=== PATIENT | male | born 1965 | race Two or more races ===

== ENCOUNTER 2023-01-23 10:35 | Emergency (ER) | payer MEDICAID ==
[~2023-01-23] VITALS: Ht 167.6 cm; Wt 141.2 kg
[2023-01-23 11:19] LABS: Basophils # (auto) 0.1 10 ^3/uL (0-0.2); Basophils % (auto) 0.6 % (0.0-2.0); Eosinophils # (auto) 0.1 10 ^3/uL (0-0.8); Lymphocytes # (auto) 3.1 10 ^3/uL (0.4-5.4); Neutrophils # (auto) 6.7 10 ^3/uL (1.6-8.6); Neutrophils % (auto) 62.3 % (37.0-80.0); Nucleated Red Blood Cells % 0.1 %
[2023-01-23 11:21] LABS: Eosinophils % (auto) 0.9 % (0.0-7.0); Hematocrit 57.2 % (41.0-53.0); Hemoglobin 19.3 g/dL (13.5-17.5); Lymphocytes % (auto) 29.3 % (10.0-50.0); Mean Corpuscular Hgb Conc. 33.8 g/dL (32.0-36.0); Mean Corpuscular Volume 94.6 fL (80.0-100.0); Monocytes # (auto) 0.7 10 ^3/uL (0-1.3); Monocytes % (auto) 6.9 % (0.0-12.0); Red Blood Cells 6.04 10^6/uL (4.5-5.90); White Blood Cell 10.7 10^3/uL (4.4-10.8)
[2023-01-23 11:36] LABS: Urine Bacteria NONE SEEN /hpf (None Seen); Urine Blood Negative /uL (Negative); Urine Clarity Clear (Clear); Urine Color Yellow (Yellow); Urine Hyaline Cast FEW /lpf (0 - 2); Urine Mucus FEW (None Seen); Urine Protein, UAD 1+ (Negative); Urine Specific Gravity 1.024 (1.001-1.035); Urine WBC 7 /hpf (0 - 3); Urine pH 5.5 (5.0-8.0)
[2023-01-23 12:09] LABS: Alanine Aminotransferase 31 U/L (16-61); Aspartate Aminotransferase 17 U/L (15-37); GFR African American 101 mL/min; GFR Non-African American 84 mL/min; Magnesium 2.2 mg/dL (1.6-2.6); Total Protein 7.1 g/dL (6.4-8.2)
[2023-01-23 12:17] LABS: Potassium 4.5 mmol/L (3.5-5.1); Sodium 140 mmol/L (136-145)
[2023-01-23 12:18] LABS: Albumin 3.9 g/dL (3.4-5.0); Alkaline Phosphatase 85 U/L (45-117); Anion Gap 9 (5-15); BUN/Creatinine Ratio 13.3 (10.0-20.0); Bilirubin, Total 0.6 mg/dL (0.2-1.0); Blood Urea Nitrogen 13 mg/dL (7-18); Calcium 10.5 mg/dL (8.5-10.1); Carbon Dioxide 21 mmol/L (21-32); Chloride 110 mmol/L (98-107); Glucose 110 mg/dL (74-106)
[2023-01-23 12:19] LABS: Amylase 36 U/L (25-115); Lipase 203 U/L (73-393)
[2023-01-23] MEDS ORDERED: ZOFR4T PO (12:39)
[2023-01-23] MEDS ORDERED: TRAM50TA2 PO (12:39)
[2023-01-23] MEDS ORDERED: CIPR-173 PO (12:41)
[2023-01-23 12:47] VITALS: BP 145/91; PULSE 95; RESP 18; TEMP 97.5; O2SAT 97
== END 2023-01-23 12:51 | disposition home or self-care (01) ==
LOC: ER 10:35
DX: N20.0 Calculus of kidney (principal); N39.0 Urinary tract infection, site not specified; F17.210 Nicotine dependence, cigarettes, uncomplicated; Z79.899 Other long term (current) drug therapy
CPT/HCPCS: 36415; 74176; 80053; 81001; 82150; 83690; 83735; 84484; 85025; 93005

== ENCOUNTER 2024-08-09 08:18 | Inpatient (IN) | payer MEDICAID ==
[~2024-08-09] VITALS: Ht 188 cm; Wt 139.0 kg
[~2024-08-09 08:18] MED LIST: CIPR-173 PO; TRAM50TA2 PO; ZOFR4T PO
--- NOTE | 2024-08-09 09:30 | ED.PDOC ---
Musculoskeletal HPI Comments 59 year old male presents to the ED with chief complaint of bilateral foot pain. Patient reports that he has been experiencing bilateral foot numbness, pain, and discoloration for the past month, worsening over time. Patient relays that his pain worsened so much last night that he needed to come into the ED for further evaluation. Patient states he got a PCP last week and has not seen a doctor in years. Patient denies any weakness, calf pain, thigh pain, chest pain, SOB, or headache. Chief Complaint: Lower Extremity Time Seen by MD: 09:26 Primary Care Provider: NONE Reviewed Notes: Nurses Notes, Medications, Allergies Allergies: Uncoded Allergies: NARCOTICS (Allergy, Unknown, 01/23/23) Home Meds Active Scripts Ciprofloxacin Hcl (Cipro) 500 Mg Tab, 1 TAB PO BID, #14 TAB Prov:EREN WEBB MD 01/23/23 Tramadol Hcl (Tramadol Hcl) 50 Mg Tab, 50 MG PO Q8HP PRN for 7 Days, #21 TAB Prov:EREN WEBB MD 01/23/23 Ondansetron Odt 4MG Tab (ZOFRAN PO) 4 Mg Tb, 4 MG PO Q8HPRN PRN for 5 Days, #15 TAB ODT TAB-DISSOLVE IN MOUTH, THEN SWALLOW Prov:EREN WEBB MD 01/23/23 Information Source: Patient Mode of Arrival: Wheelchair Location: Bilateral Extremity Location: Foot Timing: Months Prehospital treatment: None Severity: Moderate Able to Move Extremity: Yes Bear Weight: Limited Pain: Moderate Mechanism: Spontaneous Circumstances: Spontaneous Onset of Symptoms: Spontaneous Symptoms: Pain, Erythema DVT Risk Factors: NONE Last Tetanus: Unknown Past Medical History PAST MEDICAL HISTORY: Kidney Stones Surgical History: Hernia Repair Family History Family History: Reviewed,noncontributory to illness, Family hx of Cancer Social History Smoker: Cigarettes Alcohol: Sober Drugs: Denies Drug Use Lives In: Home Constitutional: denies: chills, diaphoresis, fatigue, fever, malaise, sweats, weakness, others EENTM: denies: blurred vision, double vision, ear bleeding, ear discharge, ear drainage, ear pain, ear ringing, eye pain, eye redness, hearing loss, mouth pain, mouth swelling, nasal discharge, nose bleeding, nose congestion, nose pain, photophobia, tearing, throat pain, throat swelling, voice changes, others Respiratory: denies: cough, hemoptysis, orthopnea, SOB at rest, shortness of breath, SOB with excertion, stridor, wheezing, others Cardiovascular: denies: chest pain, dizzy spells, diaphoresis, Dyspnea on exertion, edema, irregular heart beat, left arm pain, lightheadedness, palpitations, PND, syncope, others Gastrointestinal: denies: abdomen distended, abdominal pain, blood streaked bowels, constipated, diarrhea, dysphagia, difficulty swallowing, hematemesis, melena, nausea, poor appetite, poor fluid intake, rectal bleeding, rectal pain, vomiting, others Genitourinary: denies: burning, dysuria, flank pain, frequency, hematuria, incontinence, penile discharge, penile sore, pain, testicle pain, testicle swelling, urgency, others Neurological: reports: numbness; denies: dizziness, fainting, headache, left sided numbness, left sided weakness, paresthesia, pre-existing deficit, right sided numbness, right sided weakness, seizure, speech problems, tingling, tremors, weakness, others Musculoskeletal: reports: others (Bilateral foot pain); denies: back pain, gout, joint pain, joint swelling, muscle pain, muscle stiffness, neck pain Integumetry: denies: bruises, change in color, change in hair/nails, dryness, laceration, lesions, lumps, rash, wounds, others Allergic/Immunocompromised: denies: Difficulty Healing, Frequent Infections, Hives, Itching, others Hematologic/Lymphatic: denies: anemia, blood clots, easy bleeding, easy bruising, swollen glands, others Endocrine: denies: excessive hunger, excessive sweating, excessive thirst, excessive urination, flushing, intolerance to cold, intolerance to heat, unexplained weight gain, unexplained weight loss, others Psychiatric: denies: anxiety, bipolar disorder, depression, hopeless, panic disorder, schizophrenia, sleepless, suicidal, others All Other Systems: Reviewed and Negative Physical Exam General Appearance: No Apparent Distress, Normal HEENT: Normal ENT Inspection, PERRL/EOMI Neck: Full Range of Motion, Non-Tender, Normal, Normal Inspection Respiratory: Chest Non-Tender, Lungs Clear, No Accessory Muscle Use, No Respiratory Distress, Normal Breath Sounds Cardiovascular: No Edema, No JVD, No Murmur, No Gallop, Normal Peripheral Pulses, Regular Rate/Rhythm Breast Exam: Deferred Gastrointestinal: No Organomegaly, Non Tender, No Pulsatile Mass, Normal Bowel Sounds, Soft Genitalia: Deferred Pelvic: Deferred Rectal: Deferred Extremities: No calf tenderness, Normal range of motion, No pedal edema, Other (Erythema and Moddling noted to the bilateral lower extremities) Musculoskeletal : Apperance: Normal Neurologic: Alert, press tender short goods II-XII nml as Tested, No Motor Deficits, Normal Affect, Normal Mood, No Sensory Deficits Cerebellar Function: Normal Reflexes: Normal Skin: Dry, Normal Color, Warm Lymphatic: No Adenopathy Was a procedure done? Was a procedure done?: No Differential Diagnosis EXT Differential Diagnosis: Sprain, Gout, Myocardial Infarction, Contusion, Strain, Neurovascular injury, Arthritis X-Ray, Labs, Meds, VS Vital Signs Date Time Temp Pulse Resp B/P (MAP) Pulse Ox O2 Delivery O2 Flow Rate FiO2 08/09/24 12:00 83 08/09/24 11:41 91 16 131/80 (97) 95 08/09/24 10:31 95 08/09/24 10:24 98.2 102 16 148/70 (96) 95 98.2 08/09/24 10:24 102 16 95 Room Air 08/09/24 08:29 97.7 112 18 162/86 (111) 95 Lab Test 08/09/24 12:05 08/09/24 10:21 08/09/24 10:05 08/09/24 09:41 Range/Units Troponin I High Sensitivity Pending 460 *H </=54 ng/L POC Glucose 123 H 70-106 mg/dl Urine Color Light-yellow Yellow Urine Clarity Clear Clear Urine pH 6.5 5.0-9.0 Urine Specific [place] 1.013 1.001-1.035 Urine Protein 1+ H Negative Urine Ketones Negative Negative Urine Blood Trace H Negative /uL Urine Nitrite Negative Negative Urine Bilirubin Negative Negative Urine Urobilinogen Normal Negative mg/dL Urine Leukocyte Esterase Negative Negative /uL Urine RBC 8 0 - 3 /hpf Urine Microscopic WBC 5 H 0-3 /HPF Urine Squamous Epithelial Cells Few <5 /hpf Urine Bacteria None seen None Seen /hpf Urine Hyaline Casts Few 0 - 2 /lpf Urine Mucus Few None Seen Urine Glucose Normal Normal mg/dL Test 08/09/24 08:30 Range/Units White Blood Count 11.8 H 4.4-10.8 10^3/uL Red Blood Count 5.64 4.5-5.90 10^6/uL Hemoglobin 17.2 13.5-17.5 g/dL Hematocrit 52.8 41.0-53.0 % Mean Corpuscular Volume 93.6 80.0-100.0 fL Mean Corpuscular Hemoglobin 30.4 28.0-32.0 pg Mean Corpuscular Hemoglobin Concent 32.5 32.0-36.0 g/dL Red Cell Distribution Width 14.2 11.8-14.3 % Platelet Count 187 140-450 10^3/uL Mean Platelet Volume 9.7 6.9-10.8 fL Neutrophils (%) (Auto) 80.9 H 37.0-80.0 % Lymphocytes (%) (Auto) 11.8 10.0-50.0 % Monocytes (%) (Auto) 6.0 0.0-12.0 % Eosinophils (%) (Auto) 0.8 0.0-7.0 % Basophils (%) (Auto) 0.5 0.0-2.0 % Neutrophils # (Auto) 9.5 H 1.6-8.6 10 ^3/uL Lymphocytes # (Auto) 1.4 0.4-5.4 10 ^3/uL Monocytes # (Auto) 0.7 0-1.3 10 ^3/uL Eosinophils # (Auto) 0.1 0-0.8 10 ^3/uL Basophils # (Auto) 0.1 0-0.2 10 ^3/uL Nucleated Red Blood Cells 0.1 % Prothrombin Time 11.1 9.3-11.8 sec Prothrombin Time INR 1.05 0.9-1.15 Activated Partial Thromboplast Time 28.6 24.5-34.5 SEC Sodium Level 140 136-145 mmol/L Potassium Level 4.1 3.5-5.1 mmol/L Chloride Level 105 98-107 mmol/L Carbon Dioxide Level 25 20-31 mmol/L Anion Gap 10 5-15 Blood Urea Nitrogen 11 9-23 mg/dL Creatinine 0.92 0.700-1.30 mg/dL Glomerular Filtration Rate Calc 96 >90 mL/min BUN/Creatinine Ratio 12.0 10.0-20.0 Serum Glucose 223 H 74-106 mg/dL Calcium Level 10.5 H 8.7-10.4 mg/dL Troponin I High Sensitivity 417 *H </=54 ng/L Time of 1ST Reevaluation: 10:26 Reevaluation 1ST: Unchanged Patient Education/Counseling: Diagnosis, Treatment Family Education/Counseling: No Family Present Additional Information The following tests were ordered, and results were reviewed by me: EKG, Troponin, CBC, BMP, PTPTT, UA Additional Information was gathered from interviewing the following independent historians: None I reviewed and agreed with the following test results read by other providers: None I discussed treatment and results with medical personnel. Departure 1 Departure Time of Disposition: 12:09 (Patient appears to have possible vascular compromise and lower extremities. Also possibility diabetes gout. We will check labs x-ray and admit patient for further workup and expert consultation) Impression: Primary Impression: Lower extremity edema Additional Impressions: Vascular insufficiency of extremity Leg pain Qualified Codes: M79.604 - Pain in right leg; M79.605 - Pain in left leg Foot pain, bilateral Elevated troponin Disposition: ADMITTED INPATIENT Admit to: Med Surg Condition: Serious Critical Care Note Critical Care Time?: No Stability Stability form required: No Heart Score Heart Score: Heart Score Response (Comments) Value History N/A 0 EKG N/A 0 Age N/A 0 Risk Factors N/A 0 Troponin N/A 0 Total 0 I personally scribed for SHIRLENE SOMMER MD ([email or web address]) on 08/09/24 at 09:30. Electronically submitted by Waylon Juares ([email or web address]). SHIRLENE SOMMER MD Aug 09, 2024 09:30
[2024-08-09 09:32] LABS: Basophils # (auto) 0.1 10 ^3/uL (0-0.2); Basophils % (auto) 0.5 % (0.0-2.0); Eosinophils # (auto) 0.1 10 ^3/uL (0-0.8); Eosinophils % (auto) 0.8 % (0.0-7.0); Hematocrit 52.8 % (41.0-53.0); Hemoglobin 17.2 g/dL (13.5-17.5); Lymphocytes # (auto) 1.4 10 ^3/uL (0.4-5.4); Lymphocytes % (auto) 11.8 % (10.0-50.0); Mean Corpuscular Hemoglobin 30.4 pg (28.0-32.0); Mean Corpuscular Hgb Conc. 32.5 g/dL (32.0-36.0); Mean Corpuscular Volume 93.6 fL (80.0-100.0); Monocytes # (auto) 0.7 10 ^3/uL (0-1.3); Neutrophils # (auto) 9.5 10 ^3/uL (1.6-8.6); Neutrophils % (auto) 80.9 % (37.0-80.0); Nucleated Red Blood Cells % 0.1 %; Platelet Count (auto) 187 10^3/uL (140-450); Red Blood Cells 5.64 10^6/uL (4.5-5.90); Red Cell Distribution Width 14.2 % (11.8-14.3); White Blood Cell 11.8 10^3/uL (4.4-10.8)
[2024-08-09 09:38] LABS: Chloride 105 mmol/L (98-107); Potassium 4.1 mmol/L (3.5-5.1); Sodium 140 mmol/L (136-145)
[2024-08-09 09:39] LABS: Anion Gap 10 (5-15); Carbon Dioxide 25 mmol/L (20-31)
[2024-08-09 09:44] LABS: Blood Urea Nitrogen 11 mg/dL (9-23)
[2024-08-09 09:48] LABS: INR 1.05 (0.9-1.15); Partial Thromboplastin Time 28.6 SEC (24.5-34.5); Prothrombin Time 11.1 sec (9.3-11.8)
[2024-08-09 09:53] LABS: Calcium 10.5 mg/dL (8.7-10.4); Glucose 223 mg/dL (74-106)
[2024-08-09 10:17] LABS: Urine Bacteria None Seen /hpf (None Seen)
--- NOTE | 2024-08-09 10:32 | ECG ---
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
[2024-08-09 10:34] LABS: Urine Blood TRACE /uL (Negative); Urine Clarity Clear (Clear); Urine Color Light-Yellow (Yellow); Urine Hyaline Cast FEW /lpf (0 - 2); Urine Mucus FEW (None Seen); Urine Protein, UAD 1+ (Negative); Urine Specific Gravity 1.013 (1.001-1.035); Urine Squamous Epithelial Cell FEW /hpf (<5); Urine Urobilinogen Normal (Negative); Urine WBC 5 /HPF (0-3); Urine pH 6.5 (5.0-9.0)
[2024-08-09 11:44] VITALS: PULSE 89; RESP 16; O2SAT 95
[2024-08-09] MEDS: KETOROLAC TROMETH 30 MG/ML 1ML VIAL IV ONE (13:10)
--- NOTE | 2024-08-09 13:30 | DVH ---
EXAM: XY CHEST TWO VIEWS ROUTINE HISTORY: elevate trop COMPARISON: None TECHNIQUE: Frontal and lateral views of the chest were performed . The frontal view was performed with apical l ordotic angulation. FINDINGS: No pneumothorax, pulmonary edema, pleural effusions, or consolidative infiltrates. The heart is bord feliciano enlarged. Abundant overlying soft tissue obscures evaluation of fine detail. IMPRESSION: Obesity without evidence of acute intrathoracic process.
[2024-08-09] MEDS ORDERED: ONDANSETRON HCL 4 MG/2 ML VIAL IV PRN (13:45)
[2024-08-09] MEDS ORDERED: NITROGLYCERIN 0.4 MG SL TAB SL PRN (13:45)
[2024-08-09] MEDS: SODIUM CHLORIDE 0.9% 1,000 ML IV SCH (13:45)
[2024-08-09] MEDS: COLCHICINE 0.6 MG CAP PO ONE (13:45)
[2024-08-09 13:49] LABS: Triglycerides 129 mg/dL (< 150)
[2024-08-09 13:51] LABS: Cholesterol 154 mg/dL (< 200); HDL Cholesterol 43 mg/dL (40-59)
[2024-08-09 13:53] LABS: LDL Cholesterol 101 mg/dL (< 100)
--- NOTE | 2024-08-09 14:16 | DVHHP2 ---
History of Present Illness Reason for Visit: Bilateral foot pain History of Present Illness This 59-year-old male presents in the ED with a chief complaint of bilateral foot pain. The patient states bilateral lower extremity pain is associated with numbness, tingling sensation, edema, erythema, and discoloration for the past m onth. The patient states has not seen a PCP for 14 years until last week. During the PCP visit the patient was prescribed gabapentin for the peripheral neuropathy and was advised to get blood work done. The patient states history of kidney stones, hernia repair, tobacco use, and methamphetamine abuse. The patient denies dizziness, diaphoresis, chest pain, ERNST, shortness of breath, or other acute symptoms Past Medical History As stated in HPI Past Surgical History Hernia repair Family History Reviewed, non-contributory to the management of this case. Past Social History Admits to tobacco use Ex- amphetamine abuse Denies EtOH Review of Systems Constitutional: Yes: Malaise; No: Fever, Chills, Sweats, Weakness, Other Eyes: No: Pain, Vision change, Conjunctivae inflammation, Eyelid inflammation, Other, Redness ENT: No: Ear pain, Ear discharge, Nose pain, Nose discharge, Nose congestion, Mouth pain, Mouth swelling, Throat pain, Throat swelling, Other Respiratory: No: Cough, Dry, Shortness of breath, SOB with excertion, Wheezing, Hemoptysis, Pleuritic Pain, Sputum, Wheezing, Other Cardiovascular: Edema; No: Chest Pain, Palpitations, Orthopnea, Paroxysmal Noc. Dyspnea, Lt Headedness, Other Gastrointestinal: No: Nausea, Vomiting, Abdominal Pain, Diarrhea, Constipation, Melena, Hematochezia, Other Genitourinary: No Dysuria, No Frequency, No Incontinence, No Hematuria, No Retention, No Other Musculoskeletal: No: other, neck pain, shoulder pain, arm pain, back pain, hand pain, leg pain, foot pain Skin: Other (Foot pain, swelling on toes); No: Rash, Lesions, Jaundice, Bruisi ng Neurological: Numbness; No: Weakness, Incoordination, Change in speech, Confusion, Seizures, Other Allergies: Uncoded Allergies: NARCOTICS (Allergy, Unknown, 01/23/23) Exam Vital Signs Vital Signs Date Time Temp Pulse Resp B/P (MAP) Pulse Ox O2 Delivery O2 Flow Rate FiO2 08/09/24 12:00 82 16 117/78 (91) 95 08/09/24 10:24 98.2 98.2 08/09/24 10:24 Room Air General Appearance: Alert, Oriented X3, Cooperative, mild distress HEENT: Atraumatic, PERRLA, EOMI, Mucous membr. moist/pink Respiratory: Clear to auscultation, Normal air movement Cardiovascular: Regular rate, Normal S1, Normal S2, Other (Bilateral lower extremity nonpitting edema) Abdominal: Normal bowel sounds, Soft, No tenderness Extremities: No clubbing, No cyanosis, No tenderness/swelling Skin: No rashes, No breakdown, No significant lesion Neuro: Normal speech, Normal tone, Sensation intact Psych/Mental Status: Mental status NL Labs/Xrays Labs Test 08/09/24 12:05 08/09/24 10:21 08/09/24 09:41 08/09/24 08:30 Range/Units Troponin I High Sensitivity 499 *H </=54 ng/L POC Glucose 123 H 70-106 mg/dl Urine Color Light-yellow Yellow Urine Clarity Clear Clear Urine pH 6.5 5.0-9.0 Urine Specific [place] 1.013 1.001-1.035 Urine Protein 1+ H Negative Urine Ketones Negative Negative Urine Blood Trace H Negative /uL Urine Nitrite Negative Negative Urine Bilirubin Negative Negative Urine Urobilinogen Normal Negative mg/dL Urine Leukocyte Esterase Negative Negative /uL Urine RBC 8 0 - 3 /hpf Urine Microscopic WBC 5 H 0-3 /HPF Urine Squamous Epithelial Cells Few <5 /hpf Urine Bacteria None seen None Seen /hpf Urine Hyaline Casts Few 0 - 2 /lpf Urine Mucus Few None Seen Urine Glucose Normal Normal mg/dL White Blood Count 11.8 H 4.4-10.8 10^3/uL Red Blood Count 5.64 4.5-5.90 10^6/uL Hemoglobin 17.2 13.5-17.5 g/dL Hematocrit 52.8 41.0-53.0 % Mean Corpuscular Volume 93.6 80.0-100.0 fL Mean Corpuscular Hemoglobin 30.4 28.0-32.0 pg Mean Corpuscular Hemoglobin Concent 32.5 32.0-36.0 g/dL Red Cell Distribution Width 14.2 11.8-14.3 % Platelet Count 187 140-450 10^3/uL Mean Platelet Volume 9.7 6.9-10.8 fL Neutrophils (%) (Auto) 80.9 H 37.0-80.0 % Lymphocytes (%) (Auto) 11.8 10.0-50.0 % Monocytes (%) (Auto) 6.0 0.0-12.0 % Eosinophils (%) (Auto) 0.8 0.0-7.0 % Basophils (%) (Auto) 0.5 0.0-2.0 % Neutrophils # (Auto) 9.5 H 1.6-8.6 10 ^3/uL Lymphocytes # (Auto) 1.4 0.4-5.4 10 ^3/uL Monocytes # (Auto) 0.7 0-1.3 10 ^3/uL Eosinophils # (Auto) 0.1 0-0.8 10 ^3/uL Basophils # (Auto) 0.1 0-0.2 10 ^3/uL Nucleated Red Blood Cells 0.1 % Prothrombin Time 11.1 9.3-11.8 sec Prothrombin Time INR 1.05 0.9-1.15 Activated Partial Thromboplast Time 28.6 24.5-34.5 SEC Sodium Level 140 136-145 mmol/L Potassium Level 4.1 3.5-5.1 mmol/L Chloride Level 105 98-107 mmol/L Carbon Dioxide Level 25 20-31 mmol/L Anion Gap 10 5-15 Blood Urea Nitrogen 11 9-23 mg/dL Creatinine 0.92 0.700-1.30 mg/dL Glomerular Filtration Rate Calc 96 >90 mL/min BUN/Creatinine Ratio 12.0 10.0-20.0 Serum Glucose 223 H 74-106 mg/dL Calcium Level 10.5 H 8.7-10.4 mg/dL PROCEDURE(s): CXR2 - CHEST TWO VIEWS ROUTINE REASON: elevate trop ORDER NUMBER(s): [id number], ACCESSION NUMBER(s): [id number] EXAM: XY CHEST TWO VIEWS ROUTINE HISTORY: elevate trop COMPARISON: None TECHNIQUE: Frontal and lateral views of the chest were performed . The frontal view was performed with apical lordotic angulation. FINDINGS: No pneumothorax, pulmonary edema, pleural effusions, or consolidative infiltrates. The heart is borderline enlarged. Abundant overlying soft tissue obscures evaluation of fine detail. IMPRESSION: Obesity without evidence of acute intrathoracic process. Assessment/Plan Assessment/Plan # NSTEMI possible type 2, 12 lead EKG not shows acute ischemia # rule out structural heart disease # rule out PAD # rule out DVT # Peripheral neuropathy # ?gout Admit to telemetry unit Echo Cardiology consult Trend troponin Gabapentin, colchicine check esr cxray # leukocytosis Blood and urine culture Monitor # tobacco dependence Nicotine patch Smoking cessation counseled # hyperglycemia Check A1c # morbid obesity Lifestyle modification with diet, regular exercise, weight loss Lipid panel TSH # Ex-amphetamine abuse Check UDS DVT prophylaxis Medical plan discussed with patient and RN Plan discussed with: Patient My Orders Orders - VANNESSA PARNELL Procedure Category Date Status Time Chest Two Views XY 08/09/24 Resulted Routine 12:32 Hemoglobin A1c LAB 08/09/24 In Process 12:32 Thyroid Stimulating LAB 08/09/24 In Process Hormone 12:32 Lipid Panel LAB 08/09/24 In Process 12:34 Date of Service: Aug 09, 2024 Billing Provider: VANNESSA PARNELL Common Visit Codes: 50833-YOSLFLA INP/OBS CARE (HIGH) VANNESSA PARNELL Aug 09, 2024 14:16
--- NOTE | 2024-08-09 14:54 | DVH ---
Bilateral lower extremity venous duplex Clinical History: rule out dvt Comparison: None Technique: Duplex Doppler evaluation of the deep venous systems of both lower extremities from the co mmon femoral veins to the popliteal veins including color Doppler and spectral/pulsed waveform analys is was performed. Findings: RIGHT SIDE: The common femoral vein demonstrates appropriate compressibility and waveform variability. There is compressibility/patency of the great saphenous vein at the proximal thigh. The femoral vein demonstrates appropriate compressibility and waveform variability. The deep femoral vein demonstrates appropriate compressibility and waveform variability. The popliteal vein demonstrates appropriate compressibility and waveform variability. There is color flow at the tibioperoneal trunk and in the posterior tibial vein. LEFT SIDE: The common femoral vein demonstrates appropriate compressibility and waveform variability. There is compressibility/patency of the great saphenous vein at the proximal thigh. The femoral vein demonstrates appropriate compressibility and waveform variability. The deep femoral vein demonstrates appropriate compressibility and waveform variability. The popliteal vein demonstrates appropriate compressibility and waveform variability. There is color flow at the tibioperoneal trunk and in the posterior tibial vein. Impression: 1. No right or left femoropopliteal venous thrombosis.
--- NOTE | 2024-08-09 14:59 | DVH ---
Bilateral Lower Extremity Arterial Duplex Clinical History: rule out pad Comparison: None Technique: Duplex Doppler evaluation including color Doppler and spectral/pulsed waveform analysis of the lower extremity arteries was performed. Findings: RIGHT: Peak systolic velocities are as follows: HORSERADISH MAKER 153 cm/s Deep femoral 47 cm/s SFA proximal 130 cm/s SFA mid-portion 94 cm/s SFA distal 89 cm/s Popliteal 52 cm/s Posterior tibial 23 cm/s Anterior tibial 5 cm/s Peroneal not visualized cm/s Dorsalis pedis 5 cm/s The waveforms are monophasic. LEFT: Peak systolic velocities are as follows: HORSERADISH MAKER 140 cm/s Deep femoral 39 cm/s SFA proximal 130 cm/s SFA mid-portion 87 cm/s SFA distal 48 cm/s Popliteal 44 cm/s Posterior tibial 17 cm/s Anterior tibial 31 cm/s Peroneal not visualized cm/s Dorsalis pedis 31 cm/s The waveforms are monophasic. IMPRESSION: 20-49% stenosis of the right common femoral artery based on peak systolic velocity criteria. Abnormal monophasic arterial waveforms in the bilateral dorsalis pedis arteries is suggestive of unde rlying peripheral arterial disease. REFERENCE VALUES, [facility] ([facility]) vascular Imaging Lab Criteria: Peak systolic velocity ranges (in cm/sec) are as follows: <150 cm/s - <20 % stenosis 150-200 cm/s - 20-49% stenosis 200-300 cm/s - 50-75% stenosis >300 cm/s -> 75% stenosis
[2024-08-09] MEDS: GABAPENTIN 100 MG CAP PO SCH (15:20)
[2024-08-09] MEDS: NICOTINE 7MG/24HR TOPICAL PATCH TD ONE (15:23)
[2024-08-09 17:08] LABS: Erythrocyte Sedimentation Rate 16 mm/hr (0-20)
[2024-08-09 17:21] LABS: Amphetamine Screen, Urine Neg (NEGATIVE); Barbiturate Scree,Urine Neg (NEGATIVE); Benzodiazephine Screen, Urine Neg (NEGATIVE); Cocaine Screen, Urine Neg (NEGATIVE); Opiate Scree,Urine Neg (NEGATIVE); Phencyclidine Screen, Urine Neg (NEGATIVE)
[2024-08-09 17:55] LABS: Cannabinoid Screen, Urine Neg (NEGATIVE)
[2024-08-09 19:42] VITALS: PULSE 110; RESP 18; O2SAT 93
[2024-08-09] MEDS: IBUPROFEN 800 MG TAB PO ONE (20:45)
[2024-08-09 21:47] VITALS: BP 158/85; PULSE 103; RESP 19; TEMP 97.9; O2SAT 94
[2024-08-09 22:55] VITALS: BP 158/85; PULSE 103; RESP 19; TEMP 97.9; O2SAT 94
[2024-08-10] VITALS (11 sets, daily range): BP systolic 114–183; BP diastolic 69–115; PULSE 75–109; RESP 15–21; TEMP 97.8–98.6; O2SAT 91–97
[2024-08-10] MEDS: cloNIDine HCL 0.1 MG TAB PO ONE (06:23)
[2024-08-10 08:13] LABS: Basophils # (auto) 0.1 10 ^3/uL (0-0.2); Basophils % (auto) 0.5 % (0.0-2.0); Eosinophils # (auto) 0.2 10 ^3/uL (0-0.8); Lymphocytes # (auto) 2.8 10 ^3/uL (0.4-5.4); Neutrophils # (auto) 6.5 10 ^3/uL (1.6-8.6); Nucleated Red Blood Cells % 0.1 %; White Blood Cell 10.6 10^3/uL (4.4-10.8)
[2024-08-10 08:17] LABS: Alanine Aminotransferase 26 U/L (7-40); Alkaline Phosphatase 77 U/L (46-116); Anion Gap 8 (5-15); BUN/Creatinine Ratio 15.2 (10.0-20.0); Blood Urea Nitrogen 15 mg/dL (9-23); Carbon Dioxide 26 mmol/L (20-31); Chloride 103 mmol/L (98-107); Eosinophils % (auto) 2.3 % (0.0-7.0); Hematocrit 52.8 % (41.0-53.0); Hemoglobin 17.6 g/dL (13.5-17.5); Lymphocytes % (auto) 26.7 % (10.0-50.0); Mean Corpuscular Hgb Conc. 33.3 g/dL (32.0-36.0); Mean Corpuscular Volume 93.3 fL (80.0-100.0); Monocytes % (auto) 9.6 % (0.0-12.0); Neutrophils % (auto) 60.9 % (37.0-80.0); Platelet Count (auto) 187 10^3/uL (140-450); Potassium 4.2 mmol/L (3.5-5.1); Red Blood Cells 5.66 10^6/uL (4.5-5.90); Red Cell Distribution Width 13.7 % (11.8-14.3); Sodium 137 mmol/L (136-145)
[2024-08-10 08:18] LABS: Albumin 4.4 g/dL (3.2-4.8); Aspartate Aminotransferase 16 U/L (13-40)
[2024-08-10 08:19] LABS: Bilirubin, Total 0.6 mg/dL (0.2-1.0); Total Protein 6.7 g/dL (5.7-8.2)
--- NOTE | 2024-08-10 08:19 | DVHSR ---
APPROVED REPORT EXAM: Two-dimensional and M-mode echocardiogram with Doppler and color Doppler. Blood Pressure: 117/78 mmHg INDICATION Rule out structural heart disease RISK FACTORS Obesity: Height: 6'2", Weight: 318 DIMENSIONS LVDd4.5 (3.8-5.7cm)LA (2D)3.4 (1.9-4.0cm)Aortic Root4.4 (2.0-3.7cm) LVDs3.5 (2.5-4.0cm)LA (MM) (1.9-4.0cm)Aortic Cusp Exc2.0 (1.5-2.0cm) EF (%) 45.0 (55-70%)Rt. Atrium3.5 (1.9-4.0cm)Asc. Aorta cm IVSd1.2 (0.7-1.1cm)RV (D)3.8 (1.8-2.4cm) PWd1.4 (0.7-1.1cm) Mitral Valve MitralMitral Stenosis E wave0.91m/sMV Mean GR.mmHg A wave0.81m/sMV Peak GR.mmHg E/A ratio1.12D MVAcm2 DECEL [id number] 1/2 Timems Aortic Valve Aortic ValveAortic Stenosis V10.81m/Sanchez Mean GR.3mmHg V21.18m/Sanchez Peak GR.6mmHg LVOT Diameter2.6 (1.8-2.4cm)Doppler AVA3.64cm2 Pulmonic Valve V20.85m/s Other Information Technically limited study due to body habitus. Conclusion lvef 50% minor apical wall motion abnormality noted mild septal hypertrophy mild aortic regurg normal rv function normal atria
[2024-08-10 08:21] LABS: Calcium 11.1 mg/dL (8.7-10.4); Glucose 115 mg/dL (74-106)
[2024-08-10] MEDS: COLCHICINE 0.6 MG CAP PO SCH (09:53)
[2024-08-10] MEDS: ENOXAPARIN SOD 40 MG/0.4 ML SYRINGE SC SCH (09:54)
[2024-08-10] MEDS: NICOTINE 7MG/24HR TOPICAL PATCH TD SCH (09:55)
[2024-08-10] MEDS ORDERED: COLCHICINE 0.6 MG CAP PO SCH (10:00)
[2024-08-10] MEDS ORDERED: ENOXAPARIN SOD 40 MG/0.4 ML SYRINGE SC SCH (10:00)
[2024-08-10] MEDS: IBUPROFEN 800 MG TAB PO PRN (11:16)
--- NOTE | 2024-08-10 13:55 | DVHINCON2 ---
Date Seen: Aug 10, 2024 Referring Physician FERNANDO Sterling Reason for Consultation NSTEMI History of Present Illness This is a 59-year-old male patient who presents to the emergency room with chief complaint of bilateral feet pain for 1.5 months. The patient reports an increase in pain over the last couple of days and decided to come to the emergency room for further evaluation. Cardiology has been consulted at this time for elevated troponin level. Patient denies any chest pain, palpitations, shortness of breath, or other cardiac symptoms. Initial twelve lead electrocardiogram reveals normal sinus rhythm. Initial troponin level of 417ng/L with flat trend thereafter. Significant past medical history includes hyperlipidemia, tobacco use, and morbid obesity. Of note, the patient reports he has not seen a primary doctor in approximately 15 years. Past Medical History Past medical history reviewed. No other significant than mentioned above. Past Surgical History Umbilical hernia repair Family History: FH: cancer G8 FATHER Family History Family history reviewed. Social History Patient has a 40 pack-year history, currently smokes approximately six cigarettes per day Patient denies any illicit drug use (states he used to do amphetamines; last time was 10 years ago) Denies any alcohol use Allergies: Uncoded Allergies: NARCOTICS (Allergy, Unknown, 01/23/23) Home Meds Active Scripts Ciprofloxacin Hcl (Cipro) 500 Mg Tab, 1 TAB PO BID, #14 TAB Prov:EREN WEBB MD 01/23/23 Tramadol Hcl (Tramadol Hcl) 50 Mg Tab, 50 MG PO Q8HP PRN for 7 Days, #21 TAB Prov:EREN WEBB MD 01/23/23 Ondansetron Odt 4MG Tab (ZOFRAN PO) 4 Mg Tb, 4 MG PO Q8HPRN PRN for 5 Days, #15 TAB ODT TAB-DISSOLVE IN MOUTH, THEN SWALLOW Prov:EREN WEBB MD 01/23/23 Home Meds Home medications reviewed. Current Medications Current Medications Medications (Trade) Dose Ordered Sig/Marilee Route PRN Reason Start Time Stop Time Status Last Admin Colchicine (Colcrys) 0.6 mg DAILY PO 08/10/24 10:00 08/09/24 14:09 DC Gabapentin (Neurontin Capsule) 100 mg TID PO 08/09/24 14:00 08/10/24 13:31 Enoxaparin Sodium (Lovenox) 40 mg DAILY SC 08/10/24 10:00 08/09/24 14:09 DC Nicotine (Nicoderm 7MG/ 24HR) 1 patch DAILY TD 08/10/24 10:00 08/10/24 09:55 Enoxaparin Sodium (Lovenox) 40 mg DAILY SC 08/10/24 10:00 08/10/24 09:54 Colchicine (Colcrys) 0.6 mg DAILY PO 08/10/24 10:00 08/10/24 09:53 Ibuprofen (Motrin Tablet) 800 mg Q8HP PRN PO MODERATE PAIN (4-6 PAIN SCALE) 08/10/24 10:30 08/10/24 11:16 Review of Systems Constitutional: No symptom reported Ears, Nose, & Throat: No symptom reported Eyes: No symptom reported Neurological: No symptoms reported Pulmonary/Respiratory: No symptoms reported Cardiovascular: Bilateral feet pain Gastrointestinal: No symptom reported Genitourinary: No symptom reported Musculoskeletal: No symptom reported Skin: No symptom reported Psychiatric: No symptom reported Endocrine: No symptom reported Hematologic/Lymphatic: No symptom reported Vital Signs Vital Signs Date Time Temp Pulse Resp B/P (MAP) Pulse Ox O2 Delivery O2 Flow Rate FiO2 08/10/24 13:00 98.6 94 18 152/79 (103) 93 98.6 08/10/24 08:05 Room Air* 0 21 Physical Exam General Appearance: Cooperative. Morbidly obese Pulmonary/Respiratory: Clear, bilateral breaths sounds. Cardiovascular/Chest: Regular rate and rhythm. Peripheral Pulses: 2+ Radial (R). 2+ Radial (L). Abdominal Exam: Normal bowel sounds. Ankle Exam: Negative ankle edema Lower extremities: Negative lower extremity edema Neuro/Mental Status: A/OX4, coherent. Thoughts/Psych: Normal thought pattern. Appropriate mood and affect. Good judgment and insight. Appearance: No acute distress. Skin Exam: Discoloration to all toes on both feet. Worsening purple discoloration to 2nd and 3rd digit on right foot Labs/Diagnostic Data Labs Test 08/10/24 07:03 08/09/24 15:14 08/09/24 12:05 08/09/24 10:21 Range/Units White Blood Count 10.6 4.4-10.8 10^3/uL Red Blood Count 5.66 4.5-5.90 10^6/uL Hemoglobin 17.6 H 13.5-17.5 g/dL Hematocrit 52.8 41.0-53.0 % Mean Corpuscular Volume 93.3 80.0-100.0 fL Mean Corpuscular Hemoglobin 31.0 28.0-32.0 pg Mean Corpuscular Hemoglobin Concent 33.3 32.0-36.0 g/dL Red Cell Distribution Width 13.7 11.8-14.3 % Platelet Count 187 140-450 10^3/uL Mean Platelet Volume 9.2 6.9-10.8 fL Neutrophils (%) (Auto) 60.9 37.0-80.0 % Lymphocytes (%) (Auto) 26.7 10.0-50.0 % Monocytes (%) (Auto) 9.6 0.0-12.0 % Eosinophils (%) (Auto) 2.3 0.0-7.0 % Basophils (%) (Auto) 0.5 0.0-2.0 % Neutrophils # (Auto) 6.5 1.6-8.6 10 ^3/uL Lymphocytes # (Auto) 2.8 0.4-5.4 10 ^3/uL Monocytes # (Auto) 1.0 0-1.3 10 ^3/uL Eosinophils # (Auto) 0.2 0-0.8 10 ^3/uL Basophils # (Auto) 0.1 0-0.2 10 ^3/uL Nucleated Red Blood Cells 0.1 % Sodium Level 137 136-145 mmol/L Potassium Level 4.2 3.5-5.1 mmol/L Chloride Level 103 98-107 mmol/L Carbon Dioxide Level 26 20-31 mmol/L Anion Gap 8 5-15 Blood Urea Nitrogen 15 9-23 mg/dL Creatinine 0.99 0.700-1.30 mg/dL Glomerular Filtration Rate Calc 88 >90 mL/min BUN/Creatinine Ratio 15.2 10.0-20.0 Serum Glucose 115 #H 74-106 mg/dL Calcium Level 11.1 H 8.7-10.4 mg/dL Total Bilirubin 0.6 0.2-1.0 mg/dL Aspartate Amino Transferase (AST) 16 13-40 U/L Alanine Aminotransferase (ALT) 26 7-40 U/L Alkaline Phosphatase 77 46-116 U/L Total Protein 6.7 5.7-8.2 g/dL Albumin 4.4 3.2-4.8 g/dL Erythrocyte Sedimentation Rate 16 0-20 mm/hr Uric Acid 6.0 3.7-9.2 mg/dL Troponin I High Sensitivity 499 *H </=54 ng/L POC Glucose 123 H 70-106 mg/dl Test 08/09/24 09:41 08/09/24 08:30 Range/Units Urine Color Light-yellow Yellow Urine Clarity Clear Clear Urine pH 6.5 5.0-9.0 Urine Specific [place] 1.013 1.001-1.035 Urine Protein 1+ H Negative Urine Ketones Negative Negative Urine Blood Trace H Negative /uL Urine Nitrite Negative Negative Urine Bilirubin Negative Negative Urine Urobilinogen Normal Negative mg/dL Urine Leukocyte Esterase Negative Negative /uL Urine RBC 8 0 - 3 /hpf Urine Microscopic WBC 5 H 0-3 /HPF Urine Squamous Epithelial Cells Few <5 /hpf Urine Bacteria None seen None Seen /hpf Urine Hyaline Casts Few 0 - 2 /lpf Urine Mucus Few None Seen Urine Glucose Normal Normal mg/dL Urine Opiates Screen Neg NEGATIVE Urine Fentanyl Screen Neg NEGATIVE Urine Barbiturates Screen Neg NEGATIVE Urine Phencyclidine Screen Neg NEGATIVE Urine Amphetamines Screen Neg NEGATIVE Urine Benzodiazepines Screen Neg NEGATIVE Urine Cocaine Screen Neg NEGATIVE Urine Cannabinoids Screen Neg NEGATIVE Prothrombin Time 11.1 9.3-11.8 sec Prothrombin Time INR 1.05 0.9-1.15 Activated Partial Thromboplast Time 28.6 24.5-34.5 SEC Hemoglobin A1c 5.8 H <5.7 % A1C Triglycerides Level 129 < 150 mg/dL Cholesterol Level 154 < 200 mg/dL LDL Cholesterol 101 H < 100 mg/dL HDL Cholesterol 43 40-59 mg/dL Thyroid Stimulating Hormone (TSH) 0.86 0.55-4.78 uIU/mL Microbiology Date/Time Source Procedure Growth Status 08/09/24 09:41 Voided Urine Urine Culture - Preliminary Resulted Assessment Peripheral arterial disease Hypertensive urgency NSTEMI, likely type II Aortic valve regurgitation, mild degree Hyperlipidemia Tobacco use Morbid obesity Plan/Recommendation We will continue with the following plan/recommendations (Dr. Garcia): Patient seen and examined at bedside with . Transthoracic echocardiogram reveals EF 50% with minor apical wall motion abnormality and mild septal hypertrophy. Bilateral lower extremity arterial duplex reveals 20-49% stenosis of the right common femoral artery and abnormal monophasic arterial waveforms in the bilateral dorsalis pedis suggestive of underlying peripheral ar terial disease. At the time of assessment, the patient has discoloration to all toes on bilateral feet with worsening purple discoloration specifically to 2nd and 3rd digit on right foot. Patient was offered a bilateral peripheral angiogram at this time. Procedure discussed in full detail with the patient by Dr. Garcia. The patient understands and is agreeable to undergo the procedure. We will schedule the patient at first availability on 08/10/2024. In the meantime, continue with blood pressure control, initiate lipid-lowering agent, continue with pain management, and close cardiac surveillance. Risk factors discussed with the patient such as the need to quit smoking. Patient verbalized an understanding. Thank you for allowing us to care for this patient. Please call with any questions or concerns. Critical care time spent: 44 minutes This medical document was created using an electronic medical record system with voice recognition software and computerized dictation system. Although this document has been carefully reviewed, there might still be some phonetic and typographical errors. Occasional wrong-word or ``sound-alike substitutions may have occurred due to the inherent limitations of voice recognition software. These areas are purely typographical due to imperfections of the software programs and do not reflect any compromise in the patient's medical care. Please read the chart carefully and recognize, using context, where these substitutions have occurred. Plan discussed with: Patient NYHA Physical activity limitations: NA Date of Service: Aug 10, 2024 Billing Provider: ANTONY NICHOLSON Cardiology Common Codes: 15179-[id number] INP/OBS CARE (High) Cardiology Consultation Codes: [id number] CONSULT <45MIN ANTONY NICHOLSON Aug 10, 2024 13:55
[2024-08-10] MEDS: IODIXANOL 320MG/ML 100ML BTL IV ONE (16:33)
[2024-08-10] MEDS: ANGIOMAX 250 MG VIAL IV ONE ×2 (16:46→17:51)
[2024-08-10] MEDS: SODIUM CHL 0.9% 50 ML ONE ×2 (16:46→17:51)
[2024-08-10] MEDS: fentaNYL CITRATE 100 MCG/2 ML VL ONE ×2 (16:47→18:08)
[2024-08-10] MEDS: MIDAZOLAM HCL 2MG/2ML 2ml VIAL (1mg/ml) ONE (16:48)
[2024-08-10] MEDS: LIDOCAINE 2%HCL (LOCAL ANESTH.) INJ 20ML MDV ONE (17:03)
[2024-08-10] MEDS: HEPARIN SODIUM (PORCINE) 5000 UNITS/ML 1ML VIAL ONE (17:30)
--- NOTE | 2024-08-10 17:37 | DVHPN2 ---
Subjective in bed no chest pain Changes from previous H/P or p: No Changes Eyes: No Pain, No Vision change, No Conjunctivae inflammation, No Eyelid inflammation, No Other, No Redness ENT: No Ear pain, No Ear discharge, No Nose pain, No Nose discharge, No Nose congestion, No Mouth pain, No Mouth swelling, No Throat pain, No Throat swelling, No Other Cardiovascular: No Chest Pain, No Palpitations, No Orthopnea, No Paroxysmal Noc. Dyspnea; Edema; No Lt Headedness, No Other Respiratory: No Cough, No Dry, No Shortness of breath, No SOB with excertion, No Wheezing, No Hemoptysis, No Pleuritic Pain, No Sputum, No Other Gastrointestinal: No Nausea, No Vomiting, No Abdominal Pain, No Diarrhea, No Constipation, No Melena, No Hematochezia, No Other Genitourinary: No Dysuria, No Frequency, No Incontinence, No Hematuria, No Retention, No Other Musculoskeletal: No other, No neck pain, No shoulder pain, No arm pain, No back pain, No hand pain, No leg pain, No foot pain Skin: No Rash, No Lesions, No Jaundice, No Bruising; Other (Foot pain, swelling on toes) Objective Vitals Vital Signs Date Time Temp Pulse Resp B/P (MAP) Pulse Ox O2 Delivery O2 Flow Rate FiO2 08/10/24 13:00 98.6 94 18 152/79 (103) 93 98.6 08/10/24 08:05 Room Air* 0 21 Intake/Output Intake and Output 08/10/24 07:00 Intake Total 900 ml Balance 900 ml Intake Oral 900 ml General Appearance: Alert, Oriented X3 Lungs: Clear to auscultation Cardiovascular: Regular rate Medications Current Medications Medications Dose Ordered Sig/Marilee Route Start Time Stop Time Status Last Admin Dose Admin Gabapentin 100 mg TID PO 08/09/24 14:00 08/10/24 13:31 100 MG Sodium Chloride 1,000 ml @ 60 mls/hr [id number] IV 08/09/24 13:45 08/10/24 07:00 60 MLS/HR Ondansetron HCl 4 mg Q4HP PRN IV 08/09/24 13:45 Nitroglycerin 0.4 mg Q5MINP PRN SL 08/09/24 13:45 Nicotine 1 patch DAILY TD 08/10/24 10:00 08/10/24 09:55 1 PATCH Enoxaparin Sodium 40 mg DAILY SC 08/10/24 10:00 08/10/24 09:54 40 MG Colchicine 0.6 mg DAILY PO 08/10/24 10:00 08/10/24 09:53 0.6 MG Ibuprofen 800 mg Q8HP PRN PO 08/10/24 10:30 08/10/24 11:16 800 MG Hydralazine HCl 10 mg Q6HP PRN IV 08/10/24 14:00 Atorvastatin Calcium 60 mg HS PO 08/10/24 22:00 Laboratory Results Laboratory Tests 08/10/24 07:03 Chemistry Test 08/10/24 07:03 Albumin 4.4 g/dL (3.2-4.8) Calcium Level 11.1 mg/dL (8.7-10.4) H Total Protein 6.7 g/dL (5.7-8.2) LFT Test 08/10/24 07:03 Alanine Aminotransferase (ALT) 26 U/L (7-40) Alkaline Phosphatase 77 U/L (46-116) Aspartate Amino Transferase (AST) 16 U/L (13-40) Total Bilirubin 0.6 mg/dL (0.2-1.0) Urinalysis Test 08/09/24 09:41 Urine Color Light-yellow (Yellow) Urine Clarity Clear (Clear) Urine pH 6.5 (5.0-9.0) Urine Specific [place] 1.013 (1.001-1.035) Urine Protein 1+ (Negative) H Urine Ketones Negative (Negative) Urine Blood Trace /uL (Negative) H Urine Nitrite Negative (Negative) Urine Bilirubin Negative (Negative) Urine Urobilinogen Normal mg/dL (Negative) Urine Leukocyte Esterase Negative /uL (Negative) Urine RBC 8 /hpf (0 - 3) Urine Microscopic WBC 5 /HPF (0-3) H Urine Squamous Epithelial Cells Few /hpf (<5) Urine Bacteria None seen /hpf (None Seen) Urine Hyaline Casts Few /lpf (0 - 2) Urine Mucus Few (None Seen) Urine Glucose Normal mg/dL (Normal) Microbiology Microbiology Date/Time Source Procedure Growth Status 08/09/24 15:14 Blood Blood Culture - Preliminary NO GROWTH AFTER 24 HOURS OF INCUBATION. Resulted 08/09/24 09:41 Voided Urine Urine Culture - Preliminary Resulted Assessment/Plan Assessment/Plan # NSTEMI possible type 2, 12 lead EKG not shows acute ischemia # rule out structural heart disease # rule out PAD # rule out DVT # Peripheral neuropathy # ?gout Echo with some apical dismotility Cardio recs for angio of LE due to 20-49% stenosis of the right common femoral artery # leukocytosis Blood and urine culture Monitor # tobacco dependence Nicotine patch Smoking cessation counseled # hyperglycemia Check A1c # morbid obesity Lifestyle modification with diet, regular exercise, weight loss Lipid panel TSH # Ex-amphetamine abuse Check UDS DVT prophylaxis Medical plan discussed with patient and RN Plan discussed with: Patient My Orders Orders - LAURA BRAY MD Procedure Category Date Status Time Ibuprofen Tablet PHA 08/10/24 In Process (Motrin Tablet) 10:30 Date of Service: Aug 10, 2024 Billing Provider: LAURA BRAY MD Common Visit Codes: [id number] INP/OBS CARE(HIGH) LAURA BRAY MD Aug 10, 2024 17:37
[2024-08-10] MEDS: HYDROmorphone HCL 2 MG/ML VL/or syr ONE (18:14)
[2024-08-10] MEDS: hydrALAZINE HCL 20 MG/ML VL ONE (18:21)
--- NOTE | 2024-08-10 19:15 | DVHOP2 ---
Operative Report - 2 Report Details Date: 08/10/24 Preop Diagnosis: Peripheral vascular disease Postop Diagnosis: PERSONAL CAREGIVER and atherotomy of distal posterior tibial artery proximal and mid posterior tibial artery Surgeon: Martha Garcia MD Anesthesiologist: Conscious sedation Anesthesia: Mac, Local (Fentanyl Dilaudid and Versed were instituted throughout the procedure. I personally ordered and monitoring patient throughout the entirety of the case) Consent: The patient was informed of the risks and benefits of the procedure. These include but are not limited to complications of anesthesia, postoperative infection, incomplete relief of symptoms, recurrence of symptoms, damage to blood vessels, nerves and tendons, deep venous thrombosis, pulmonary embolism and possible need for repeat surgery in the future. Complications: No complications Estimated Blood Loss: 10 cc Findings: Severe peripheral vascular disease. Indications for Surgery: Foot pain Name of Procedure Performed Angiographic evaluation of all extremities. PERSONAL CAREGIVER atherotomy of the right posterior tibial artery. Procedure Details Procedure Details: Prior full informed consent obtained the patient was prepped and draped in usual fashion and a six [place] sheath was placed under ultrasound and fluoroscopic guidance into the left femoral artery. We then obtained an angiographic evaluation of the left lower extremity followed by a rim catheter being placed over the left and into the right iliac artery subsequent to which a runoff was performed of the lower extremity as well we then proceed with angioplasty as will be delineated below. Angiographic evaluation revealed bilateral patent iliacs. Femoral arteries superficial femoral arteries bilaterally and profundus were within normal limits bilaterally. The popliteal artery on the left is normal. The anterior and posterior tibial arteries on the left are occluded in its proximal and mid section respectively. There single-vessel runoff to via the peroneal artery to the foot. The peroneal artery distally collateralizes the plantar arch. The right superficial femoral artery as mentioned is normal. The popliteal artery is normal. There is occlusion proximally of the posterior tibial artery and proximally of the anterior tibial artery. The peroneal is patent to the level of the ankle. It collateralizes the superior and inferior plantar arch. The calcaneal artery. Limited flow noted to the distal metatarsals given severe stenotic occlusions of the plantar arch in its mid section. Limited flow to the digits The posterior tibial artery distally at the level of the ankle is 99% stenosed. There was retrograde filling from the calcaneal artery retrograde indicating the severity of stenosis. Minimal antegrade flow. We placed an advantage wire within the rim catheter was in the right femoral RV from the contralateral femoral. We then placed a six [place] destination sheath. This was a 90 cm destination sheath into the right femoral artery distally c ontralaterally from the left. We used a quick cross catheter and the advantage wire to into the area of stenosis in the posterior tibial artery. We then performed angiographic evaluation showing significant stenosis in the entirety of the mid and distal posterior tibial artery. This stenosis extended to the level of the ankle. The posterior tibial artery then supplied the calcaneal and posterior/inferior plantar arch via small collaterals. We then exchanged the advantage wire for a choice PTX support 300 cm in length and placed a 2.5 mm euphoria balloon. We dilated distal posterior tibial artery from the ankle to the mid section. There was modest improvement. We then placed a 3-0, 80 cm chocolate balloon/atherotomy balloon. This was placed at the level of the malleolus and we angioplastied proximally into the mid anterior tibial. There was notable improvement of flow however there was a modest improvement in the junction of the posterior tibial artery at the level of the malleolus. Nitroglycerin did improve flow to the foot. There was modest improvement in flow to the foot forefoot and distal digits. We removed the sheath and placed a Perclose device. Impression successful PERSONAL CAREGIVER and aperture of the posterior tibial artery with a right lower extremity with a occluded left anterior and posterior tibial artery occlusions. Flow to the left foot however better flow in the digits than the right. Occluded anterior tibial artery in the right we successful angioplasty of the right posterior tibial artery with modest improvement of flow into the plantar arch and right foot circulation. Recommendations we will continue to treat medically. Incorporate high-dose statin therapy. Smoking cessation. Nicotine patch. Vasodilators. Anticoagulants. Consider staged procedure for anterior tibial artery with antegrade approach if no improvement in clinical condition within 24-48 hours. Consider vascular consultation. Condition Guarded Disposition Still a Patient Date of Service: Aug 10, 2024 Billing Provider: MARTHA GARCIA Sr., MD Cardiology Common Codes: 21406-VULOLYN INP/OBS CARE (High) Peripheral Procedures Codes: 42937-[id number] W/TRANS ANGPLASTY, 90382-[id number] TIBIAL PERONEAL ART (Atherotomy of posterior tibial artery of right lower extremity.), [id number]-[id number] RAD SUP/INTERP MARTHA GARCIA Sr., MD Aug 10, 2024 19:15
[2024-08-10] MEDS: HYDROcodone-ACET 5/325MG TAB PO ONE (20:10)
[2024-08-10] MEDS ORDERED: ATORVASTATIN 20 MG TAB PO SCH (22:00)
[2024-08-10] MEDS: ATORVASTATIN 20 MG TAB PO SCH (22:10)
[2024-08-10] MEDS: ENOXAPARIN SOD 150 MG/1 ML SYRINGE SC SCH (22:11)
[2024-08-11] VITALS (8 sets, daily range): BP systolic 131–164; BP diastolic 51–92; PULSE 81–104; RESP 17–23; TEMP 97.7–98.9; O2SAT 90–96
[2024-08-11] MEDS ORDERED: GAB100C (02:24)
--- NOTE | 2024-08-11 13:31 | DVHPN2 ---
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 Objective vital signs Vital Sign Date Time Temp Pulse Resp B/P (MAP) Pulse Ox O2 Delivery O2 Flow Rate FiO2 08/11/24 13:00 97.7 102 19 149/80 (103) 90 97.7 08/11/24 08:00 Room Air* 0 21 Total Intake and Output 08/10/24 08/10/24 08/11/24 15:00 23:00 07:00 Intake Total 1250 ml 900 ml Balance 1250 ml 900 ml medications Current Medications Medications Dose Ordered Sig/Marilee Route Start Time Stop Time Status Last Admin Dose Admin Gabapentin 100 mg TID PO 08/09/24 14:00 08/11/24 13:22 100 MG Sodium Chloride 1,000 ml @ 60 mls/hr [id number] IV 08/09/24 13:45 08/10/24 07:00 60 MLS/HR Ondansetron HCl 4 mg Q4HP PRN IV 08/09/24 13:45 Nitroglycerin 0.4 mg Q5MINP PRN SL 08/09/24 13:45 Nicotine 1 patch DAILY TD 08/10/24 10:00 08/10/24 09:55 1 PATCH Colchicine 0.6 mg DAILY PO 08/10/24 10:00 08/11/24 09:07 0.6 MG Ibuprofen 800 mg Q8HP PRN PO 08/10/24 10:30 08/11/24 13:22 800 MG Hydralazine HCl 10 mg Q6HP PRN IV 08/10/24 14:00 Atorvastatin Calcium 80 mg HS PO 08/10/24 22:00 08/10/24 22:10 80 MG Enoxaparin Sodium 130 mg BID SC 08/10/24 22:00 08/11/24 09:07 130 MG Examination: GENERAL:Normal, LUNGS:Normal, CVS:Normal, NEURO:Normal laboratory and microbiology Laboratory Tests 08/10/24 07:03 Test 08/10/24 07:03 Range/Units Serum Glucose 115 #H 74-106 mg/dL Problem List/Assessment/Plan Problem List/Assessment/Plan Severe peripheral arterial disease Hypertensive urgency NSTEMI, likely type II Aortic valve regurgitation, mild degree Hyperlipidemia Tobacco use Morbid obesity Plan/Recommendation (Dr. Garcia): Transthoracic echocardiogram reveals EF 50% with minor apical wall motion abnormality and mild septal hypertrophy. The patient underwent a bilateral peripheral angiogram on 08/10/24 in which a successful CHARTER BUS DRIVER of the posterior tibial artery with a right lower extremity with a occluded left anterior and posterior tibial artery occlusions. There were also findings of an occluded anterior tibial artery in the right which underwent a successful angioplasty of the right posterior tibial artery. There is a slight improvement in discoloration to patients right foot toes. We will recommend further medical management including high-dose statin therapy, anticoagulation, smoking cessation, and vasodilators. Vascular consult pending. Thank you for allowing us to care for this patient. Please call with any questions or concerns. This medical document was created using an electronic medical record system with voice recognition software and computerized dictation system. Although this document has been carefully reviewed, there might still be some phonetic and typographical errors. Occasional wrong-word or ``sound-alike substitutions may have occurred due to the inherent limitations of voice recognition software. These areas are purely typographical due to imperfections of the software programs and do not reflect any compromise in the patient's medical care. Please read the chart carefully and recognize, using context, where these substitutions have occurred. Plan discussed with: Patient Date of Service: Aug 11, 2024 Billing Provider: ANTONY NICHOLSON Common Visit Codes: [id number] INP/OBS CARE(HIGH) ANTONY NICHOLSON Aug 11, 2024 13:30
--- NOTE | 2024-08-11 18:33 | DVHPN2 ---
Subjective Seen and examined at bedside, still c/o foot pain. DC Lovenox and start ASA and Plavix. PT Eval. Changes from previous H/P or p: No Changes Eyes: No Pain, No Vision change, No Conjunctivae inflammation, No Eyelid inflammation, No Other, No Redness ENT: No Ear pain, No Ear discharge, No Nose pain, No Nose discharge, No Nose congestion, No Mouth pain, No Mouth swelling, No Throat pain, No Throat swelling, No Other Cardiovascular: No Chest Pain, No Palpitations, No Orthopnea, No Paroxysmal Noc. Dyspnea; Edema; No Lt Headedness, No Other Respiratory: No Cough, No Dry, No Shortness of breath, No SOB with excertion, No Wheezing, No Hemoptysis, No Pleuritic Pain, No Sputum, No Other Gastrointestinal: No Nausea, No Vomiting, No Abdominal Pain, No Diarrhea, No Constipation, No Melena, No Hematochezia, No Other Genitourinary: No Dysuria, No Frequency, No Incontinence, No Hematuria, No Retention, No Other Musculoskeletal: No other, No neck pain, No shoulder pain, No arm pain, No back pain, No hand pain, No leg pain, No foot pain Skin: No Rash, No Lesions, No Jaundice, No Bruising; Other (Foot pain, swelling on toes) Objective Vitals Vital Signs Date Time Temp Pulse Resp B/P (MAP) Pulse Ox O2 Delivery O2 Flow Rate FiO2 08/11/24 17:00 98.8 90 19 164/92 (116) 94 98.8 08/11/24 08:00 Room Air* 0 21 Intake/Output Intake and Output 08/11/24 07:00 Intake Total 2150 ml Balance 2150 ml Intake Oral 1600 ml IV Total 550 ml General Appearance: Alert, Oriented X3 Lungs: Clear to auscultation Cardiovascular: Regular rate Abdomen: Normal bowel sounds, Soft Psych/Mental Status: Mental status NL Medications Current Medications Medications Dose Ordered Sig/Marilee Route Start Time Stop Time Status Last Admin Dose Admin Gabapentin 100 mg TID PO 08/09/24 14:00 08/11/24 13:22 100 MG Sodium Chloride 1,000 ml @ 60 mls/hr [id number] IV 08/09/24 13:45 08/10/24 07:00 60 MLS/HR Ondansetron HCl 4 mg Q4HP PRN IV 08/09/24 13:45 Nitroglycerin 0.4 mg Q5MINP PRN SL 08/09/24 13:45 Nicotine 1 patch DAILY TD 08/10/24 10:00 08/10/24 09:55 1 PATCH Colchicine 0.6 mg DAILY PO 08/10/24 10:00 08/11/24 09:07 0.6 MG Ibuprofen 800 mg Q8HP PRN PO 08/10/24 10:30 08/11/24 13:22 800 MG Hydralazine HCl 10 mg Q6HP PRN IV 08/10/24 14:00 Atorvastatin Calcium 80 mg HS PO 08/10/24 22:00 08/10/24 22:10 80 MG Enoxaparin Sodium 130 mg BID SC 08/10/24 22:00 08/11/24 09:07 130 MG Laboratory Results Laboratory Tests 08/10/24 07:03 Urinalysis Test 08/09/24 09:41 Urine Color Light-yellow (Yellow) Urine Clarity Clear (Clear) Urine pH 6.5 (5.0-9.0) Urine Specific [place] 1.013 (1.001-1.035) Urine Protein 1+ (Negative) H Urine Ketones Negative (Negative) Urine Blood Trace /uL (Negative) H Urine Nitrite Negative (Negative) Urine Bilirubin Negative (Negative) Urine Urobilinogen Normal mg/dL (Negative) Urine Leukocyte Esterase Negative /uL (Negative) Urine RBC 8 /hpf (0 - 3) Urine Microscopic WBC 5 /HPF (0-3) H Urine Squamous Epithelial Cells Few /hpf (<5) Urine Bacteria None seen /hpf (None Seen) Urine Hyaline Casts Few /lpf (0 - 2) Urine Mucus Few (None Seen) Urine Glucose Normal mg/dL (Normal) Microbiology Microbiology Date/Time Source Procedure Growth Status 08/09/24 15:14 Blood Blood Culture - Preliminary NO GROWTH AFTER 48 HOURS OF INCUBATION. Resulted 08/09/24 09:41 Voided Urine Urine Culture - Preliminary Resulted Assessment/Plan Assessment/Plan # NSTEMI possible type 2, 12 lead EKG not shows acute ischemia # Perph Vascular Diasease s/p Atherectomy # Possible Acute Diastolic CHF # Leukocytosis # tobacco dependence Nicotine patch Smoking cessation counseled # hyperglycemia A1c 5.8, Prediabetic # morbid obesity Lifestyle modification with diet, regular exercise, weight loss Lipid panel TSH # Ex-amphetamine abuse Check UDS Plan discussed with: Patient My Orders Orders - ANGIE LUI MD Procedure Category Date Status Time Enoxaparin Sodium PHA 08/11/24 Transmitted (Lovenox) 22:00 Aspirin Tablet PHA 08/12/24 Transmitted 10:00 Clopidogrel Bisulfate PHA 08/12/24 Transmitted (Plavix) 10:00 Pt Request For Service PT 08/11/24 Transmitted 18:28 Basic Metabolic Panel LAB 08/12/24 Verified 04:00 Date of Service: Aug 11, 2024 Billing Provider: ANGIE LUI MD Common Visit Codes: [id number] INP/OBS CARE(HIGH) ANGIE LUI MD Aug 11, 2024 18:33
[2024-08-11] MEDS: HYDROcodone-ACET 5/325MG TAB PO ONE (19:55)
[2024-08-11] MEDS: hydrALAZINE HCL 20 MG/ML VL IV PRN (20:35)
[2024-08-11] MEDS: ENOXAPARIN SOD 150 MG/1 ML SYRINGE SC SCH (22:12)
[2024-08-12] VITALS (8 sets, daily range): BP systolic 126–159; BP diastolic 76–94; PULSE 83–97; RESP 16–20; TEMP 97.9–98.9; O2SAT 90–96
[2024-08-12 08:40] LABS: Chloride 102 mmol/L (98-107); Potassium 4.7 mmol/L (3.5-5.1); Sodium 136 mmol/L (136-145)
[2024-08-12 08:41] LABS: Anion Gap 9 (5-15); Carbon Dioxide 25 mmol/L (20-31)
[2024-08-12 08:46] LABS: BUN/Creatinine Ratio 16.3 (10.0-20.0); Blood Urea Nitrogen 17 mg/dL (9-23)
[2024-08-12 08:47] LABS: Calcium 10.9 mg/dL (8.7-10.4)
[2024-08-12 08:48] LABS: Glucose 159 mg/dL (74-106)
[2024-08-12] MEDS: ASPirin 81 mg TAB PO SCH (09:41)
[2024-08-12] MEDS: CLOPIDOGREL BISULFATE 75 MG TAB PO SCH (09:42)
--- NOTE | 2024-08-12 12:11 | DVHPN2 ---
Consult Progress Note Subjective Other Systems: Patient is still complaining of bilateral feet pain Objective vital signs Vital Sign Date Time Temp Pulse Resp B/P (MAP) Pulse Ox O2 Delivery O2 Flow Rate FiO2 08/12/24 09:00 97.9 83 17 156/90 (112) 93 97.9 08/12/24 08:00 Room Air* 0 21 Total Intake and Output 08/11/24 08/11/24 08/12/24 15:00 23:00 07:00 Intake Total 953 ml 1200 ml 400 ml Output Total 4 ml Balance 953 ml 1200 ml 396 ml medications Current Medications Medications Dose Ordered Sig/Marilee Route Start Time Stop Time Status Last Admin Dose Admin Gabapentin 100 mg TID PO 08/09/24 14:00 08/12/24 05:40 100 MG Ondansetron HCl 4 mg Q4HP PRN IV 08/09/24 13:45 Nitroglycerin 0.4 mg Q5MINP PRN SL 08/09/24 13:45 Nicotine 1 patch DAILY TD 08/10/24 10:00 08/10/24 09:55 1 PATCH Colchicine 0.6 mg DAILY PO 08/10/24 10:00 08/12/24 09:41 0.6 MG Ibuprofen 800 mg Q8HP PRN PO 08/10/24 10:30 08/12/24 05:40 800 MG Hydralazine HCl 10 mg Q6HP PRN IV 08/10/24 14:00 08/11/24 20:35 10 MG Atorvastatin Calcium 80 mg HS PO 08/10/24 22:00 08/11/24 20:35 80 MG Aspirin 81 mg DAILY PO 08/12/24 10:00 08/12/24 09:41 81 MG Clopidogrel Bisulfate 75 mg DAILY PO 08/12/24 10:00 08/12/24 09:42 75 MG Isosorbide Mononitrate 30 mg DAILY PO 08/13/24 10:00 Acetaminophen/ Hydrocodone Bitart 1 tab Q4HPRN PRN PO 08/12/24 12:00 UNV Examination: GENERAL:Normal, LUNGS:Normal, CVS:Normal, NEURO:Normal laboratory and microbiology Laboratory Tests 08/12/24 06:32 08/10/24 07:03 Test 08/12/24 06:32 Range/Units Serum Glucose 159 H 74-106 mg/dL Problem List/Assessment/Plan Problem List/Assessment/Plan Severe peripheral arterial disease Hypertensive urgency NSTEMI, likely type II Aortic valve regurgitation, mild degree Hyperlipidemia Tobacco use Morbid obesity Plan/Recommendation (Dr. Garcia): Case discussed with . Transthoracic echocardiogram reveals EF 50% with minor apical wall motion abnormality and mild septal hypertrophy. The patient underwent a bilateral peripheral angiogram on 08/10/24 in which a successful SCRAP SEPARATOR of the posterior tibial artery with a right lower extremity with a occluded left anterior and posterior tibial artery occlusions. There were also findings of an occluded anterior tibial artery in the right which underwent a successful angioplasty of the right posterior tibial artery. Today, patient complaining of pain to bilateral feet. New blisters seen to patient's right foot 2nd digit. We will recommend medical management including high-dose statin therapy, anticoagulation, smoking cessation, and vasodilators. Patient seen by vascular physician. Thank you for allowing us to care for this patient. Please call with any questions or concerns. This medical document was created using an electronic medical record system with voice recognition software and computerized dictation system. Although this document has been carefully reviewed, there might still be some phonetic and typographical errors. Occasional wrong-word or ``sound-alike substitutions may have occurred due to the inherent limitations of voice recognition software. These areas are purely typographical due to imperfections of the software programs and do not reflect any compromise in the patient's medical care. Please read the chart carefully and recognize, using context, where these substitutions have occurred. Plan discussed with: Patient Date of Service: Aug 12, 2024 Billing Provider: ANTONY NICHOLSON Common Visit Codes: [id number] INP/OBS CARE(HIGH) ANTONY NICHOLSON Aug 12, 2024 12:11
[2024-08-12] MEDS: ISOSORBIDE MONONITRATE ER 60 MG TAB PO ONE (13:16)
[2024-08-12] MEDS: MORPHINE SULFATE INJ 2 MG/ml SYRG IV PRN (13:16)
--- NOTE | 2024-08-12 15:09 | ECG ---
[facility] Test Date: 2024-08-10 Test Time: 15:17:42 Pat Name: CAMILLE EASTERN Department: Respiratoy Room: 0207 Gender: M Metaphysician: : 1965 Requested By: ANTONY NICHOLSON Order Number: [id number] Reading MD: Selvin Garcia Measurements Intervals Gage Rate: 87 P: 41 ND: 213 QRS: 19 QRSD: 68 T: 85 QT: 353 QTc: 425 Interpretive Statements Sinus rhythm Prolonged ND interval Probable anteroseptal infarct, recent Electronically Signed On 08-15-2024 15:56:34 PST by Selvin Garcia Please click the below link to view image of tracing.
--- NOTE | 2024-08-12 15:40 | DVHCONRES ---
Date Seen: Aug 12, 2024 Resident Creating Document: TERA KAUFMAN Jr., MD Referring Physician brian Reason for Consultation rest pain History of Present Illness This is a 59-year-old male patient who presents to the emergency room with chief complaint of bilateral feet pain for 1.5 months. The patient reports an increase in pain over the last couple of days and decided to come to the emergen cy room for further evaluation. Cardiology has been consulted at this time for elevated troponin level. Patient denies any chest pain, palpitations, shortness of breath, or other cardiac symptoms. Initial twelve lead electrocardiogram reveals normal sinus rhythm. Initial troponin level of 417ng/L with flat trend thereafter. Significant past medical history includes hyperlipidemia, tobacco use, and morbid obesity. Of note, the patient reports he has not seen a primary doctor in approximately 15 year Patient has been a pack-a-day smoker for approximately 30 years. Denies any diabetes. Patient is having rest pain he states his right 2nd and 3rd toe became discolored and are painful to the touch. Underwent a arteriogram and posterior tibial artery angioplasty by Dr. Brian garcia 2 days ago with possibility of returning for further intervention due to severe tibial disease. Past Medical History Hyperlipidemia morbid obesity Past Surgical History Right leg arteriogram posterior tibial artery angioplasty Family History: FH: cancer G8 FATHER Social History Pack-a-day smoker for approximately 30 years. Allergies: Coded Allergies: No Known Drug Allergy (Verified Allergy, Unknown, 08/11/24) Home Meds Active Scripts Ciprofloxacin Hcl (Cipro) 500 Mg Tab, 1 TAB PO BID, #14 TAB Prov:EREN WEBB MD 01/23/23 Tramadol Hcl (Tramadol Hcl) 50 Mg Tab, 50 MG PO Q8HP PRN for 7 Days, #21 TAB Prov:EREN WEBB MD 01/23/23 Ondansetron Odt 4MG Tab (ZOFRAN PO) 4 Mg Tb, 4 MG PO Q8HPRN PRN for 5 Days, #15 TAB ODT TAB-DISSOLVE IN MOUTH, THEN SWALLOW Prov:EREN WEBB MD 01/23/23 Reported Medications Gabapentin (Gabapentin) 100 Mg Cap 08/11/24 Current Medications Current Medications Medications (Trade) Dose Ordered Sig/Marilee Route PRN Reason Start Time Stop Time Status Last Admin Enoxaparin Sodium (Lovenox) 130 mg BID SC 08/11/24 22:00 08/12/24 06:00 DC 08/11/24 22:12 Aspirin 81 mg DAILY PO 08/12/24 10:00 08/12/24 09:41 Clopidogrel Bisulfate (Plavix) 75 mg DAILY PO 08/12/24 10:00 08/12/24 09:42 Isosorbide Mononitrate (Imdur Er Tablet) 30 mg DAILY PO 08/13/24 10:00 Acetaminophen/ Hydrocodone Bitart (Ravena 5/325MG Tab) 1 tab Q4HPRN PRN PO MODERATE PAIN (4-6 PAIN SCALE) 08/12/24 12:00 Morphine Sulfate 1 mg Q6HP PRN IV SEVERE PAIN (7-10 PAIN SCALE) 08/12/24 13:15 08/12/24 13:16 Review of Systems All systems reviewed otherwise negative other than what is in HPI. Vital Signs Vital Signs Date Time Temp Pulse Resp B/P (MAP) Pulse Ox O2 Delivery O2 Flow Rate FiO2 08/12/24 13:46 88 18 148/66 08/12/24 13:00 98.0 95 98.0 08/12/24 08:00 Room Air* 0 21 Physical Exam Head ears nose and throat exam eyes are nonicteric conjunctiva is pink neck was supple no JVD no lymphadenopathy no carotid bruits lungs are clear to auscultation heart was regular rate and rhythm abdomen is soft nontender with no pulsatile abdominal mass or bruits lower extremities is palpable femoral pulses nonpalpable pedal pulses bilaterally he does have some discoloration of the 2nd 3rd toe on the right side and his toes are painful to the touch on both legs. Neurologically has motor and sensory are grossly intact. Labs/Diagnostic Data Labs Test 08/12/24 06:32 08/10/24 07:03 08/09/24 15:14 08/09/24 12:05 Range/Units Sodium Level 136 136-145 mmol/L Potassium Level 4.7 3.5-5.1 mmol/L Chloride Level 102 98-107 mmol/L Carbon Dioxide Level 25 20-31 mmol/L Anion Gap 9 5-15 Blood Urea Nitrogen 17 9-23 mg/dL Creatinine 1.04 0.700-1.30 mg/dL Glomerular Filtration Rate Calc 83 >90 mL/min BUN/Creatinine Ratio 16.3 10.0-20.0 Serum Glucose 159 H 74-106 mg/dL Calcium Level 10.9 H 8.7-10.4 mg/dL White Blood Count 10.6 4.4-10.8 10^3/uL Red Blood Count 5.66 4.5-5.90 10^6/uL Hemoglobin 17.6 H 13.5-17.5 g/dL Hematocrit 52.8 41.0-53.0 % Mean Corpuscular Volume 93.3 80.0-100.0 fL Mean Corpuscular Hemoglobin 31.0 28.0-32.0 pg Mean Corpuscular Hemoglobin Concent 33.3 32.0-36.0 g/dL Red Cell Distribution Width 13.7 11.8-14.3 % Platelet Count 187 140-450 10^3/uL Mean Platelet Volume 9.2 6.9-10.8 fL Neutrophils (%) (Auto) 60.9 37.0-80.0 % Lymphocytes (%) (Auto) 26.7 10.0-50.0 % Monocytes (%) (Auto) 9.6 0.0-12.0 % Eosinophils (%) (Auto) 2.3 0.0-7.0 % Basophils (%) (Auto) 0.5 0.0-2.0 % Neutrophils # (Auto) 6.5 1.6-8.6 10 ^3/uL Lymphocytes # (Auto) 2.8 0.4-5.4 10 ^3/uL Monocytes # (Auto) 1.0 0-1.3 10 ^3/uL Eosinophils # (Auto) 0.2 0-0.8 10 ^3/uL Basophils # (Auto) 0.1 0-0.2 10 ^3/uL Nucleated Red Blood Cells 0.1 % Total Bilirubin 0.6 0.2-1.0 mg/dL Aspartate Amino Transferase (AST) 16 13-40 U/L Alanine Aminotransferase (ALT) 26 7-40 U/L Alkaline Phosphatase 77 46-116 U/L Total Protein 6.7 5.7-8.2 g/dL Albumin 4.4 3.2-4.8 g/dL Erythrocyte Sedimentation Rate 16 0-20 mm/hr Uric Acid 6.0 3.7-9.2 mg/dL Troponin I High Sensitivity 499 *H </=54 ng/L Test 08/09/24 10:21 08/09/24 09:41 08/09/24 08:30 Range/Units POC Glucose 123 H 70-106 mg/dl Urine Color Light-yellow Yellow Urine Clarity Clear Clear Urine pH 6.5 5.0-9.0 Urine Specific [place] 1.013 1.001-1.035 Urine Protein 1+ H Negative Urine Ketones Negative Negative Urine Blood Trace H Negative /uL Urine Nitrite Negative Negative Urine Bilirubin Negative Negative Urine Urobilinogen Normal Negative mg/dL Urine Leukocyte Esterase Negative Negative /uL Urine RBC 8 0 - 3 /hpf Urine Microscopic WBC 5 H 0-3 /HPF Urine Squamous Epithelial Cells Few <5 /hpf Urine Bacteria None seen None Seen /hpf Urine Hyaline Casts Few 0 - 2 /lpf Urine Mucus Few None Seen Urine Glucose Normal Normal mg/dL Urine Opiates Screen Neg NEGATIVE Urine Fentanyl Screen Neg NEGATIVE Urine Barbiturates Screen Neg NEGATIVE Urine Phencyclidine Screen Neg NEGATIVE Urine Amphetamines Screen Neg NEGATIVE Urine Benzodiazepines Screen Neg NEGATIVE Urine Cocaine Screen Neg NEGATIVE Urine Cannabinoids Screen Neg NEGATIVE Prothrombin Time 11.1 9.3-11.8 sec Prothrombin Time INR 1.05 0.9-1.15 Activated Partial Thromboplast Time 28.6 24.5-34.5 SEC Hemoglobin A1c 5.8 H <5.7 % A1C Triglycerides Level 129 < 150 mg/dL Cholesterol Level 154 < 200 mg/dL LDL Cholesterol 101 H < 100 mg/dL HDL Cholesterol 43 40-59 mg/dL Thyroid Stimulating Hormone (TSH) 0.86 0.55-4.78 uIU/mL Microbiology Date/Time Source Procedure Growth Status 08/09/24 15:14 Blood Blood Culture - Preliminary NO GROWTH AFTER 72 HOURS OF INCUBATION. Resulted 08/09/24 09:41 Voided Urine Urine Culture - Final Complete Bilateral Lower Extremity Arterial Duplex Clinical History: rule out pad Comparison: None Technique: Duplex Doppler evaluation including color Doppler and spectral/pulsed waveform analysis of the lower extremity arteries was performed. Findings: RIGHT: Peak systolic velocities are as follows: GAS APPLIANCE MECHANIC 153 cm/s Deep femoral 47 cm/s SFA proximal 130 cm/s SFA mid-portion 94 cm/s SFA distal 89 cm/s Popliteal 52 cm/s Posterior tibial 23 cm/s Anterior tibial 5 cm/s Peroneal not visualized cm/s Dorsalis pedis 5 cm/s The waveforms are monophasic. LEFT: Peak systolic velocities are as follows: GAS APPLIANCE MECHANIC 140 cm/s Deep femoral 39 cm/s SFA proximal 130 cm/s SFA mid-portion 87 cm/s SFA distal 48 cm/s Popliteal 44 cm/s Posterior tibial 17 cm/s Anterior tibial 31 cm/s Peroneal not visualized cm/s Dorsalis pedis 31 cm/s The waveforms are monophasic. IMPRESSION: 20-49% stenosis of the right common femoral artery based on peak systolic velocity criteria. Abnormal monophasic arterial waveforms in the bilateral dorsalis pedis arteries is suggestive of underlying peripheral arterial disease. Assessment 59-year-old male long-term history of smoking with bilateral toe pain and cyanosis of the 2nd and 3rd right toes status post intervention of the right posterior tibial artery postop day 2. Recommend continue anticoagulation and antiplatelet therapy I do agree with Dr. Garcia plan on performing a repeat angiogram of the right lower extremity needing to try and reestablish flow in his tibial vessels on his right side to improve the outcome of his cyanosis in his right 2nd and 3rd toe. At this point in time there is a high chance he may have to have those toes amputated. Plan/Recommendation 59-year-old male long-term history of smoking with bilateral toe pain and cyanosis of the 2nd and 3rd right toes status post intervention of the right posterior tibial artery postop day 2. Recommend continue anticoagulation and antiplatelet therapy I do agree with Dr. Garcia plan on performing a repeat angiogram of the right lower extremity needing to try and reestablish flow in his tibial vessels on his right side to improve the outcome of his cyanosis in his right 2nd and 3rd toe. At this point in time there is a high chance he may have to have those toes amputated. Plan discussed with: Patient TERA KAUFMAN Jr., MD Aug 12, 2024 15:40
--- NOTE | 2024-08-12 18:49 | DVHPN2 ---
Subjective in bed no chest pain Changes from previous H/P or p: No Changes Eyes: No Pain, No Vision change, No Conjunctivae inflammation, No Eyelid inflammation, No Other, No Redness ENT: No Ear pain, No Ear discharge, No Nose pain, No Nose discharge, No Nose congestion, No Mouth pain, No Mouth swelling, No Throat pain, No Throat swelling, No Other Cardiovascular: No Chest Pain, No Palpitations, No Orthopnea, No Paroxysmal Noc. Dyspnea; Edema; No Lt Headedness, No Other Respiratory: No Cough, No Dry, No Shortness of breath, No SOB with excertion, No Wheezing, No Hemoptysis, No Pleuritic Pain, No Sputum, No Other Gastrointestinal: No Nausea, No Vomiting, No Abdominal Pain, No Diarrhea, No Constipation, No Melena, No Hematochezia, No Other Genitourinary: No Dysuria, No Frequency, No Incontinence, No Hematuria, No Retention, No Other Musculoskeletal: No other, No neck pain, No shoulder pain, No arm pain, No back pain, No hand pain, No leg pain, No foot pain Skin: No Rash, No Lesions, No Jaundice, No Bruising; Other (Foot pain, swelling on toes) Objective Vitals Vital Signs Date Time Temp Pulse Resp B/P (MAP) Pulse Ox O2 Delivery O2 Flow Rate FiO2 08/12/24 17:00 97.9 97 16 126/77 (93) 95 97.9 08/12/24 08:00 Room Air* 0 21 Intake/Output Intake and Output 08/12/24 07:00 Intake Total 2553 ml Output Total 4 ml Balance 2549 ml Intake Oral 2553 ml Output Urine Total 4 ml # Voids 4 General Appearance: Alert, Oriented X3 Lungs: Clear to auscultation Cardiovascular: Regular rate Abdomen: Normal bowel sounds, Soft Psych/Mental Status: Mental status NL Medications Current Medications Medications Dose Ordered Sig/Marilee Route Start Time Stop Time Status Last Admin Dose Admin Gabapentin 100 mg TID PO 08/09/24 14:00 08/12/24 13:14 100 MG Ondansetron HCl 4 mg Q4HP PRN IV 08/09/24 13:45 Nitroglycerin 0.4 mg Q5MINP PRN SL 08/09/24 13:45 Nicotine 1 patch DAILY TD 08/10/24 10:00 08/10/24 09:55 1 PATCH Colchicine 0.6 mg DAILY PO 08/10/24 10:00 08/12/24 09:41 0.6 MG Ibuprofen 800 mg Q8HP PRN PO 08/10/24 10:30 Hold 08/12/24 05:40 800 MG Hydralazine HCl 10 mg Q6HP PRN IV 08/10/24 14:00 08/11/24 20:35 10 MG Atorvastatin Calcium 80 mg HS PO 08/10/24 22:00 08/11/24 20:35 80 MG Aspirin 81 mg DAILY PO 08/12/24 10:00 08/12/24 09:41 81 MG Clopidogrel Bisulfate 75 mg DAILY PO 08/12/24 10:00 08/12/24 09:42 75 MG Isosorbide Mononitrate 30 mg DAILY PO 08/13/24 10:00 Acetaminophen/ Hydrocodone Bitart 1 tab Q4HPRN PRN PO 08/12/24 12:00 Morphine Sulfate 1 mg Q6HP PRN IV 08/12/24 13:15 08/12/24 13:16 1 MG Laboratory Results Laboratory Tests 08/10/24 07:03 08/12/24 06:32 Chemistry Test 08/12/24 06:32 Calcium Level 10.9 mg/dL (8.7-10.4) H Urinalysis Test 08/09/24 09:41 Urine Color Light-yellow (Yellow) Urine Clarity Clear (Clear) Urine pH 6.5 (5.0-9.0) Urine Specific [place] 1.013 (1.001-1.035) Urine Protein 1+ (Negative) H Urine Ketones Negative (Negative) Urine Blood Trace /uL (Negative) H Urine Nitrite Negative (Negative) Urine Bilirubin Negative (Negative) Urine Urobilinogen Normal mg/dL (Negative) Urine Leukocyte Esterase Negative /uL (Negative) Urine RBC 8 /hpf (0 - 3) Urine Microscopic WBC 5 /HPF (0-3) H Urine Squamous Epithelial Cells Few /hpf (<5) Urine Bacteria None seen /hpf (None Seen) Urine Hyaline Casts Few /lpf (0 - 2) Urine Mucus Few (None Seen) Urine Glucose Normal mg/dL (Normal) Microbiology Microbiology Date/Time Source Procedure Growth Status 08/09/24 15:14 Blood Blood Culture - Preliminary NO GROWTH AFTER 72 HOURS OF INCUBATION. Resulted 08/09/24 09:41 Voided Urine Urine Culture - Final Complete Assessment/Plan Assessment/Plan # NSTEMI possible type 2, 12 lead EKG not shows acute ischemia Echo with some apical dismotility NSTEMI ruled out #PVD The patient underwent a bilateral peripheral angiogram on 08/10/24 in which a successful DAIRY SUPPLIES SALES REPRESENTATIVE of the posterior tibial artery with a right lower extremity with a occluded left anterior and posterior tibial artery occlusions Vascular surgery consult for possible bypass # leukocytosis Blood and urine culture Monitor # tobacco dependence Nicotine patch Smoking cessation counseled # hyperglycemia Check A1c # morbid obesity Lifestyle modification with diet, regular exercise, weight loss Lipid panel TSH # Ex-amphetamine abuse Check UDS DVT prophylaxis Medical plan discussed with patient and RN Plan discussed with: Patient My Orders Orders - LAURA BRAY MD Procedure Category Date Status Time Hydrocodone-Acet PHA 08/12/24 In Process 5/325mg Tab (Fortine 12:00 Morphine Sulfate PHA 08/12/24 In Process Injection 13:15 Date of Service: Aug 12, 2024 Billing Provider: LAURA BRAY MD Common Visit Codes: [id number] INP/OBS CARE(HIGH) LAURA BRAY MD Aug 12, 2024 18:49
[2024-08-12] MEDS: HYDROcodone-ACET 5/325MG TAB PO PRN (19:39)
[2024-08-13] VITALS (15 sets, daily range): BP systolic 115–147; BP diastolic 60–83; PULSE 66–110; RESP 13–20; TEMP 97.7–99.1; O2SAT 63–98
[2024-08-13] MEDS: ISOSORBIDE MONONITRATE ER 60 MG TAB PO SCH (09:34)
--- NOTE | 2024-08-13 12:20 | DVHPN2 ---
Consult Progress Note Subjective Other Systems: Patient is still having pain to bilateral feet. Objective vital signs Vital Sign Date Time Temp Pulse Resp B/P (MAP) Pulse Ox O2 Delivery O2 Flow Rate FiO2 08/13/24 09:34 134/70 08/13/24 09:00 98.1 83 18 95 98.1 08/13/24 08:00 Room Air* 0 21 Total Intake and Output 08/12/24 08/12/24 08/13/24 15:00 23:00 07:00 Intake Total 703 ml 1150 ml 900 ml Balance 703 ml 1150 ml 900 ml medications Current Medications Medications Dose Ordered Sig/Marilee Route Start Time Stop Time Status Last Admin Dose Admin Gabapentin 100 mg TID PO 08/09/24 14:00 08/13/24 06:04 100 MG Ondansetron HCl 4 mg Q4HP PRN IV 08/09/24 13:45 Nitroglycerin 0.4 mg Q5MINP PRN SL 08/09/24 13:45 Nicotine 1 patch DAILY TD 08/10/24 10:00 08/10/24 09:55 1 PATCH Colchicine 0.6 mg DAILY PO 08/10/24 10:00 08/13/24 09:33 0.6 MG Ibuprofen 800 mg Q8HP PRN PO 08/10/24 10:30 Hold 08/12/24 05:40 800 MG Hydralazine HCl 10 mg Q6HP PRN IV 08/10/24 14:00 08/11/24 20:35 10 MG Atorvastatin Calcium 80 mg HS PO 08/10/24 22:00 08/12/24 21:29 80 MG Aspirin 81 mg DAILY PO 08/12/24 10:00 08/13/24 09:34 81 MG Clopidogrel Bisulfate 75 mg DAILY PO 08/12/24 10:00 08/13/24 09:33 75 MG Isosorbide Mononitrate 30 mg DAILY PO 08/13/24 10:00 08/13/24 09:34 30 MG Acetaminophen/ Hydrocodone Bitart 1 tab Q4HPRN PRN PO 08/12/24 12:00 08/13/24 06:05 1 TAB Morphine Sulfate 1 mg Q6HP PRN IV 08/12/24 13:15 08/12/24 13:16 1 MG Examination: GENERAL:Normal, LUNGS:Normal, CVS:Normal, SKIN:Abnormal (Discoloration to right 2nd and 3rd digit, blisters noted on right 3rd toe), NEURO:Normal laboratory and microbiology Laboratory Tests 08/12/24 06:32 08/10/24 07:03 Test 08/12/24 06:32 Range/Units Serum Glucose 159 H 74-106 mg/dL Problem List/Assessment/Plan Problem List/Assessment/Plan Severe peripheral arterial disease Hypertensive urgency NSTEMI, likely type II Aortic valve regurgitation, mild degree Hyperlipidemia Tobacco use Morbid obesity Plan/Recommendation (Dr. Garcia): Patient seen and examined at bedside with . Transthoracic echocardiogram reveals EF 50% with minor apical wall motion abnormality and mild septal hypertrophy. The patient underwent a right peripheral angiogram on 08/10/24 in which a successful SIPHON OPERATOR of the posterior tibial artery with a right lower extremity with a occluded left anterior and posterior tibial artery occlusions. There were also findings of an occluded anterior tibial artery in the right which underwent a successful angioplasty of the right posterior tibial artery. Patient complaining of pain to bilateral feet. New blisters seen to patient's right foot 3rd digit. Consult podiatry. Given that the patient is complaining of more pain to his left foot, the patient will be taken to labeler to undergo a left peripheral angiogram on 08/13/24 with . Continue medical management including high-dose statin therapy, anticoagulation, smoking cessation, and vasodilators. Thank you for allowing us to care for this patient. Please call with any questions or concerns. This medical document was created using an electronic medical record system with voice recognition software and computerized dictation system. Although this document has been carefully reviewed, there might still be some phonetic and typographical errors. Occasional wrong-word or ``sound-alike substitutions may have occurred due to the inherent limitations of voice recognition software. These areas are purely typographical due to imperfections of the software programs and do not reflect any compromise in the patient's medical care. Please read the chart carefully and recognize, using context, where these substitutions have occurred. Plan discussed with: Patient Date of Service: Aug 13, 2024 Billing Provider: ANTONY NICHOLSON Common Visit Codes: [id number] INP/OBS CARE(HIGH) ANTONY NICHOLSON Aug 13, 2024 12:20
[2024-08-13 13:59] LABS: Basophils # (auto) 0.1 10 ^3/uL (0-0.2); Basophils % (auto) 0.4 % (0.0-2.0); Eosinophils # (auto) 0.3 10 ^3/uL (0-0.8); Hematocrit 52.9 % (41.0-53.0); Hemoglobin 17.4 g/dL (13.5-17.5); Lymphocytes # (auto) 2.8 10 ^3/uL (0.4-5.4); Lymphocytes % (auto) 22.7 % (10.0-50.0); Mean Corpuscular Hemoglobin 30.5 pg (28.0-32.0); Mean Corpuscular Hgb Conc. 32.9 g/dL (32.0-36.0); Mean Corpuscular Volume 92.6 fL (80.0-100.0); Monocytes # (auto) 1.1 10 ^3/uL (0-1.3); Monocytes % (auto) 8.9 % (0.0-12.0); Neutrophils # (auto) 8.1 10 ^3/uL (1.6-8.6); Nucleated Red Blood Cells % 0.1 %; Platelet Count (auto) 222 10^3/uL (140-450); Red Blood Cells 5.71 10^6/uL (4.5-5.90); Red Cell Distribution Width 13.7 % (11.8-14.3); White Blood Cell 12.2 10^3/uL (4.4-10.8)
[2024-08-13 14:09] LABS: Chloride 102 mmol/L (98-107); Potassium 4.5 mmol/L (3.5-5.1)
[2024-08-13 14:10] LABS: Anion Gap 8 (5-15); Carbon Dioxide 25 mmol/L (20-31)
[2024-08-13 14:15] LABS: BUN/Creatinine Ratio 17.5 (10.0-20.0); Blood Urea Nitrogen 17 mg/dL (9-23); Glucose 101 mg/dL (74-106)
[2024-08-13 14:16] LABS: Calcium 12.1 mg/dL (8.7-10.4); Sodium 135 mmol/L (136-145)
[2024-08-13] MEDS: ANGIOMAX 250 MG VIAL IV ONE (15:38)
[2024-08-13] MEDS: fentaNYL CITRATE 100 MCG/2 ML VL ONE (15:38)
[2024-08-13] MEDS: MIDAZOLAM HCL 2MG/2ML 2ml VIAL (1mg/ml) ONE (15:39)
[2024-08-13] MEDS: SODIUM CHL 0.9% 100 ML ONE (15:39)
[2024-08-13] MEDS: LIDOCAINE 2%HCL (LOCAL ANESTH.) INJ 20ML MDV ONE (15:39)
[2024-08-13] MEDS: IODIXANOL 320MG/ML 100ML BTL IV ONE (15:40)
--- NOTE | 2024-08-13 17:50 | DVHPN2 ---
Subjective in bed no chest pain still having right leg pain Changes from previous H/P or p: No Changes Eyes: No Pain, No Vision change, No Conjunctivae inflammation, No Eyelid inflammation, No Other, No Redness ENT: No Ear pain, No Ear discharge, No Nose pain, No Nose discharge, No Nose congestion, No Mouth pain, No Mouth swelling, No Throat pain, No Throat swelling, No Other Cardiovascular: No Chest Pain, No Palpitations, No Orthopnea, No Paroxysmal Noc. Dyspnea; Edema; No Lt Headedness, No Other Respiratory: No Cough, No Dry, No Shortness of breath, No SOB with excertion, No Wheezing, No Hemoptysis, No Pleuritic Pain, No Sputum, No Other Gastrointestinal: No Nausea, No Vomiting, No Abdominal Pain, No Diarrhea, No Constipation, No Melena, No Hematochezia, No Other Genitourinary: No Dysuria, No Frequency, No Incontinence, No Hematuria, No Retention, No Other Musculoskeletal: No other, No neck pain, No shoulder pain, No arm pain, No back pain, No hand pain, No leg pain, No foot pain Skin: No Rash, No Lesions, No Jaundice, No Bruising; Other (Foot pain, swelling on toes) Objective Vitals Vital Signs Date Time Temp Pulse Resp B/P (MAP) Pulse Ox O2 Delivery O2 Flow Rate FiO2 08/13/24 12:44 98.7 101 19 127/72 (90) 95 98.7 08/13/24 08:00 Room Air* 0 21 Intake/Output Intake and Output 08/13/24 07:00 Intake Total 2753 ml Balance 2753 ml Intake Oral 2753 ml # Voids 6 General Appearance: Alert, Oriented X3 Lungs: Clear to auscultation Cardiovascular: Regular rate Abdomen: Normal bowel sounds, Soft Psych/Mental Status: Mental status NL Medications Current Medications Medications Dose Ordered Sig/Marilee Route Start Time Stop Time Status Last Admin Dose Admin Gabapentin 100 mg TID PO 08/09/24 14:00 08/13/24 14:09 100 MG Ondansetron HCl 4 mg Q4HP PRN IV 08/09/24 13:45 Nitroglycerin 0.4 mg Q5MINP PRN SL 08/09/24 13:45 Nicotine 1 patch DAILY TD 08/10/24 10:00 08/10/24 09:55 1 PATCH Colchicine 0.6 mg DAILY PO 08/10/24 10:00 08/13/24 09:33 0.6 MG Ibuprofen 800 mg Q8HP PRN PO 08/10/24 10:30 Hold 08/12/24 05:40 800 MG Hydralazine HCl 10 mg Q6HP PRN IV 08/10/24 14:00 08/11/24 20:35 10 MG Atorvastatin Calcium 80 mg HS PO 08/10/24 22:00 08/12/24 21:29 80 MG Aspirin 81 mg DAILY PO 08/12/24 10:00 08/13/24 09:34 81 MG Clopidogrel Bisulfate 75 mg DAILY PO 08/12/24 10:00 08/13/24 09:33 75 MG Isosorbide Mononitrate 30 mg DAILY PO 08/13/24 10:00 08/13/24 09:34 30 MG Acetaminophen/ Hydrocodone Bitart 1 tab Q4HPRN PRN PO 08/12/24 12:00 08/13/24 14:09 1 TAB Morphine Sulfate 1 mg Q6HP PRN IV 08/12/24 13:15 08/12/24 13:16 1 MG Laboratory Results Laboratory Tests 08/13/24 13:20 Chemistry Test 08/13/24 13:20 Calcium Level 12.1 mg/dL (8.7-10.4) H Urinalysis Test 08/09/24 09:41 Urine Color Light-yellow (Yellow) Urine Clarity Clear (Clear) Urine pH 6.5 (5.0-9.0) Urine Specific [place] 1.013 (1.001-1.035) Urine Protein 1+ (Negative) H Urine Ketones Negative (Negative) Urine Blood Trace /uL (Negative) H Urine Nitrite Negative (Negative) Urine Bilirubin Negative (Negative) Urine Urobilinogen Normal mg/dL (Negative) Urine Leukocyte Esterase Negative /uL (Negative) Urine RBC 8 /hpf (0 - 3) Urine Microscopic WBC 5 /HPF (0-3) H Urine Squamous Epithelial Cells Few /hpf (<5) Urine Bacteria None seen /hpf (None Seen) Urine Hyaline Casts Few /lpf (0 - 2) Urine Mucus Few (None Seen) Urine Glucose Normal mg/dL (Normal) Microbiology Microbiology Date/Time Source Procedure Growth Status 08/09/24 15:14 Blood Blood Culture - Preliminary NO GROWTH AFTER 72 HOURS OF INCUBATION. Resulted 08/09/24 09:41 Voided Urine Urine Culture - Final Complete Assessment/Plan Assessment/Plan # NSTEMI possible type 2, 12 lead EKG not shows acute ischemia Echo with some apical dismotility NSTEMI ruled out #PVD The patient underwent a bilateral peripheral angiogram on 08/10/24 in which a successful ASSOCIATE WEB DEVELOPER of the posterior tibial artery with a right lower extremity with a occluded left anterior and posterior tibial artery occlusions Vascular surgery consult for possible bypass> no indicatiion for bypass Going for another angio by Dr torres today and also possible left angioplasty # leukocytosis Blood and urine culture Monitor # tobacco dependence Nicotine patch Smoking cessation counseled # hyperglycemia Check A1c # morbid obesity Lifestyle modification with diet, regular exercise, weight loss Lipid panel TSH # Ex-amphetamine abuse Check UDS DVT prophylaxis Medical plan discussed with patient and RN Plan discussed with: Patient Date of Service: Aug 13, 2024 Billing Provider: LAURA BRAY MD Common Visit Codes: [id number] INP/OBS CARE(HIGH) LAURA BRAY MD Aug 13, 2024 17:50
[2024-08-13] MEDS: HYDROmorphone HCL 2 MG/ML VL/or syr ONE (18:31)
--- NOTE | 2024-08-13 21:57 | DVHOP2 ---
Operative Report - 2 Report Details Date: 08/13/24 Preop Diagnosis: Peripheral vascular disease Postop Diagnosis: Successful VICE PRESIDENT PHARMACY and atherotomy of the anterior tibial artery. VICE PRESIDENT PHARMACY of the posterior tibial artery and aperture of chronic total occlusions of both anterior and posterior tibial arteries of left lower extremity. Surgeon: Martha Garcia MD Anesthesiologist: Conscious sedation Anesthesia: Mac, Local (Fentanyl Dilaudid and Versed were instituted throughout the procedure. I personally ordered and monitoring patient throughout the entirety of the case) Consent: The patient was informed of the risks and benefits of the procedure. These include but are not limited to complications of anesthesia, postoperative infection, incomplete relief of symptoms, recurrence of symptoms, damage to blood vessels, nerves and tendons, deep venous thrombosis, pulmonary embolism and possible need for repeat surgery in the future. Complications: No complications Estimated Blood Loss: 10 cc Findings: Significant peripheral vascular disease with occlusion of anterior and posterior tibials. Limited flow to the left foot Indications for Surgery: Claudication. Foot pain. Name of Procedure Performed Angiographic evaluation of the Left lower extremity.. Peripheral angiographic runoff to the level of the feet of the left lower extremity. VICE PRESIDENT PHARMACY of the left anterior and posterior tibial arteries with aperture of chronic total occlusions. Reestablishing flow to the level of the foot. Procedure Details Procedure Details: Prior full informed consent obtained the patient was prepped and draped in usual fashion and a six Sami sheath was placed under ultrasound and fluoroscopic guidance into the left femoral artery.With an antegrade approach we placed a micro puncture needle retrograde from the femoral artery towards the iliac artery. This served as a guide to access the left femoral artery since the Depth of the artery from the surface of the skin and body was greater than was visibly possible with the ultrasound device. we used a micro puncture catheter and accessed the left femoral artery from a proximally 4 cm above of the left femoral head. We entered the femoral artery at the mid femoral add and placed a small sheath into the femoral artery antegrade. We then exchanged for a support wire and placed a 45 mm destination catheter after verifying placement in the left femoral and superficial femoral artery. Angiographic evaluations were then performed of the left lower extremity in detail. We then proceeded to place a quick cross catheter with an advantage wire into the anterior tibial artery. We were able to access the anterior tibial artery distally to the level of the ankle. We then exchanged the wire for a sport wire for adequate support and performed angiographic evaluation of the distal artery. We then placed a Chocolate balloon 2.5 mm x 80 mm in length into the distal anterior tibial artery and dilated retrograde. We then placed a 150 mm by 2.5 mm balloon and performed a series of dilatation for approximately 2-3 minutes each dilatation in the anterior tibial artery from the ankle to the tibioperoneal trunk. There was recoil at the distal anterior tibial and proximal segment of the posterior tibial artery below the malleolus. Flow however was reestablished successfully. There was a small linear dissection in the mid anterior tibial artery that was self-limiting. We then redirected the wire to the posterior tibial artery and again placed the quick cross catheter distally to the level of the ankle and plantar arch, we used a 0.14 Pro via three wire to cross the area of stenosis and placed the quick cross distally. We then placed a 2.5 by 200 mm balloon and dilated from distal to proximal with adequate aperture of the posterior tibial artery. Again there was recoil at the level of the malleolus of the posterior tibial artery but we were also able to obtain flow and access into the foot. The distal plantar arch seems to be stenotic or occluded with retrograde filling of the metatarsals. There was notably improved flow in the left foot. Subsequent to terminating this process we were then able to pull the sheath and placed a Perclose device in the left femoral artery. There was adequate hemostasis. And as mentioned notably improved flow to the left foot. Impression: Successful aperture of anterior and posterior tibial arteries of the left lower extremity with flow to the left foot being reestablished. Recommendations: Continue antiplatelet therapy. Ambulation when stable Condition Good Disposition Still a Patient Date of Service: Aug 13, 2024 Billing Provider: MARTHA GARCIA Sr., MD Cardiology Common Codes: 66023-CSZ/OBS SAME DATE (High) Peripheral Procedures Codes: [id number] W/TRANS ANGPLASTY, 60882- ANGIOPLASTY W/IN SAME VESSEL, 27085-CSAPGH TIBIAL PERONEAL ART ( Associated atherotomy of the left anterior tibial artery) MARTHA GARCIA Sr., MD Aug 13, 2024 21:57
[2024-08-14] VITALS (7 sets, daily range): BP systolic 126–150; BP diastolic 74–88; PULSE 91–110; RESP 18–20; TEMP 97.6–98.4; O2SAT 90–97
--- NOTE | 2024-08-14 09:20 | DVHPN2 ---
Consult Progress Note Date Seen: Aug 14, 2024 Subjective Review of Systems: CVS:Normal, RESPIRATORY:Normal, MSK:Abnormal, NEURO:Normal Other Systems: C/o of pain to touch to right 2nd, 3rd, 4th, 5th toes Objective vital signs Vital Sign Date Time Temp Pulse Resp B/P (MAP) Pulse Ox O2 Delivery O2 Flow Rate FiO2 08/14/24 09:10 150/82 08/14/24 05:33 97.8 93 20 97 97.8 08/13/24 20:00 Room Air* 0 21 Total Intake and Output 08/13/24 08/13/24 08/14/24 15:00 23:00 07:00 Intake Total 470 ml 380 ml 800 ml Balance 470 ml 380 ml 800 ml medications Current Medications Medications Dose Ordered Sig/Marilee Route Start Time Stop Time Status Last Admin Dose Admin Gabapentin 100 mg TID PO 08/09/24 14:00 08/14/24 05:55 100 MG Ondansetron HCl 4 mg Q4HP PRN IV 08/09/24 13:45 Nitroglycerin 0.4 mg Q5MINP PRN SL 08/09/24 13:45 Nicotine 1 patch DAILY TD 08/10/24 10:00 08/14/24 09:16 1 PATCH Colchicine 0.6 mg DAILY PO 08/10/24 10:00 08/14/24 09:12 0.6 MG Ibuprofen 800 mg Q8HP PRN PO 08/10/24 10:30 Hold 08/12/24 05:40 800 MG Hydralazine HCl 10 mg Q6HP PRN IV 08/10/24 14:00 08/11/24 20:35 10 MG Atorvastatin Calcium 80 mg HS PO 08/10/24 22:00 08/13/24 21:35 80 MG Aspirin 81 mg DAILY PO 08/12/24 10:00 08/14/24 09:08 81 MG Clopidogrel Bisulfate 75 mg DAILY PO 08/12/24 10:00 08/14/24 09:13 75 MG Isosorbide Mononitrate 30 mg DAILY PO 08/13/24 10:00 08/14/24 09:10 30 MG Acetaminophen/ Hydrocodone Bitart 1 tab Q4HPRN PRN PO 08/12/24 12:00 08/14/24 09:12 1 TAB Morphine Sulfate 1 mg Q6HP PRN IV 08/12/24 13:15 08/12/24 13:16 1 MG Examination: LUNGS:Abnormal (Increased work of breathing with exertion), CVS:Normal, MSK:Abnormal (Right 2nd and 3rd toes discoloration. Pain to touch to right 2nd, 3rd, 4th, 5th toes and left upper plantar area. Left foot is cold to touch), NEURO:Normal laboratory and microbiology Laboratory Tests 08/13/24 13:20 Test 08/13/24 13:20 Range/Units Serum Glucose 101 74-106 mg/dL Problem List/Assessment/Plan Problem List/Assessment/Plan Severe peripheral arterial disease with threatening ischemia Hypertensive urgency NSTEMI, likely type II Aortic valve regurgitation, mild degree Hyperlipidemia Tobacco use Morbid obesity Plan/Recommendation (Dr. Garcia) The patient underwent a right peripheral angiogram on 08/10/24 with successful CONTINUOUS VULCANIZING MACHINE OPERATOR of the posterior tibial artery with a right lower extremity with a occluded left anterior and posterior tibial artery occlusions. There were also findings of an occluded anterior tibial artery in the right which underwent a successful angioplasty of the right posterior tibial artery. He also underwent a left lower extremity angiogram on 08/13/24 with successful atherotomy of the JOHNATHAN, CONTINUOUS VULCANIZING MACHINE OPERATOR of the CONTINUOUS VULCANIZING MACHINE OPERATOR, and aperture of chronic total occlusion of the anterior and posterior tibial arteries. Consult podiatry given discoloration of right toes. Continue medical management including high-dose statin therapy, anticoagulation with DAPT (Plavix and ASA), vasodilators for BP control, and nicotine patch. Consider transition to Plavix and low-dose Xarelto therapy if patient not deemed to need any further surgical interventions. Strongly counseled on smoking cessation, medical compliance, and exercise. Consider a sleep study and pulmonary function test as outpatient. Follow-up with a primary concession stand attendant or vascular specialist as outpatient. Please call if in need to re-consult or if there are any further inquiries. Thank you for allowing us to care for this patient. This medical document was created using an electronic medical record system with voice recognition software and computerized dictation system. Although this document has been carefully reviewed, there might still be some phonetic and typographical errors. Occasional wrong-word or ``sound-alike substitutions may have occurred due to the inherent limitations of voice recognition software. These areas are purely typographical due to imperfections of the software programs and do not reflect any compromise in the patient's medical care. Please read the chart carefully and recognize, using context, where these substitutions have occurred. Plan discussed with: Patient, Other Date of Service: Aug 14, 2024 Billing Provider: MELLO ALVAREZ Cardiology Common Codes: [id number] HOSP CARE(High MELLO ALVAREZ Aug 14, 2024 09:20
[2024-08-14] MEDS: ISOSORBIDE MONONITRATE ER 60 MG TAB PO SCH (10:00)
[2024-08-14 10:28] LABS: Chloride 101 mmol/L (98-107); Potassium 4.4 mmol/L (3.5-5.1)
[2024-08-14 10:29] LABS: Anion Gap 8 (5-15); Carbon Dioxide 27 mmol/L (20-31)
[2024-08-14 10:34] LABS: BUN/Creatinine Ratio 16.5 (10.0-20.0); Blood Urea Nitrogen 19 mg/dL (9-23)
[2024-08-14 10:35] LABS: Calcium 11.4 mg/dL (8.7-10.4); Glucose 142 mg/dL (74-106); Sodium 136 mmol/L (136-145)
--- NOTE | 2024-08-14 14:18 | DVHINCON2 ---
Date Seen: Aug 14, 2024 Reason for Consultation Bilateral toe cyanosis History of Present Illness This 59-year-old male presents in the ED with a chief complaint of bilateral foot pain. The patient states bilateral lower extremity pain is associated with numbness, tingling sensation, edema, erythema, and discoloration for the past month. The patient states has not seen a PCP for 14 years until last week. During the PCP visit the patient was prescribed gabapentin for the peripheral neuropathy and was advised to get blood work done. The patient states history of kidney stones, hernia repair, tobacco use, and methamphetamine abuse. The patient denies dizziness, diaphoresis, chest pain, ERNST, shortness of breath, or other acute symptoms Past Medical History See H&P Past Surgical History See H&P Family History: FH: cancer G8 FATHER Allergies: Coded Allergies: No Known Drug Allergy (Verified Allergy, Unknown, 08/11/24) Home Meds Active Scripts Ciprofloxacin Hcl (Cipro) 500 Mg Tab, 1 TAB PO BID, #14 TAB Prov:EREN WEBB MD 01/23/23 Tramadol Hcl (Tramadol Hcl) 50 Mg Tab, 50 MG PO Q8HP PRN for 7 Days, #21 TAB Prov:EREN WEBB MD 01/23/23 Ondansetron Odt 4MG Tab (ZOFRAN PO) 4 Mg Tb, 4 MG PO Q8HPRN PRN for 5 Days, #15 TAB ODT TAB-DISSOLVE IN MOUTH, THEN SWALLOW Prov:EREN WEBB MD 01/23/23 Reported Medications Gabapentin (Gabapentin) 100 Mg Cap 08/11/24 Current Medications Current Medications Medications (Trade) Dose Ordered Sig/Marilee Route PRN Reason Start Time Stop Time Status Last Admin Isosorbide Mononitrate (Imdur Er Tablet) 60 mg DAILY PO 08/14/24 10:00 Vital Signs Vital Signs Date Time Temp Pulse Resp B/P (MAP) Pulse Ox O2 Delivery O2 Flow Rate FiO2 08/14/24 12:20 98.4 104 19 126/77 (93) 94 98.4 08/13/24 20:00 Room Air* 0 21 Physical Exam DERMATOLOGIC EXAM: - Skin is dry and cool to the touch dry bilaterally. - Nails 1-5 of the bilateral foot are thickened, discolored, dystrophic, and tender to palpate with subungual debris - Hair loss noted to bilateral feet - cyanosis of multiple digits with blistering of the right 3rd digit VASCULAR EXAM: - DP and PT pulses are palpable bilaterally. - CHILD GUIDANCE COUNSELOR is brisk to all digits. - Feet are cool to touch compared to lower legs bilaterally. NEUROLOGIC EXAM: - Normal light touch sensation to the superficial peroneal, deep peroneal, sural, saphenous, and tibial nerve branches. - Protective sensation is diminished as tested with a 5.07 10g Luckey-Fab bilaterally. MUSCULOSKELETAL EXAM: - No gross deformities - Muscle strength is 5/5 and active motion is pain-free and symmetrical bilaterally - No pain or crepitation with passive range of motion bilaterally to all major pedal joints Labs/Diagnostic Data Labs Test 08/14/24 10:02 08/13/24 13:20 08/10/24 07:03 08/09/24 15:14 Range/Units Sodium Level 136 136-145 mmol/L Potassium Level 4.4 3.5-5.1 mmol/L Chloride Level 101 98-107 mmol/L Carbon Dioxide Level 27 20-31 mmol/L Anion Gap 8 5-15 Blood Urea Nitrogen 19 9-23 mg/dL Creatinine 1.15 0.700-1.30 mg/dL Glomerular Filtration Rate Calc 73 >90 mL/min BUN/Creatinine Ratio 16.5 10.0-20.0 Serum Glucose 142 H 74-106 mg/dL Calcium Level 11.4 H 8.7-10.4 mg/dL White Blood Count 12.2 H 4.4-10.8 10^3/uL Red Blood Count 5.71 4.5-5.90 10^6/uL Hemoglobin 17.4 13.5-17.5 g/dL Hematocrit 52.9 41.0-53.0 % Mean Corpuscular Volume 92.6 80.0-100.0 fL Mean Corpuscular Hemoglobin 30.5 28.0-32.0 pg Mean Corpuscular Hemoglobin Concent 32.9 32.0-36.0 g/dL Red Cell Distribution Width 13.7 11.8-14.3 % Platelet Count 222 140-450 10^3/uL Mean Platelet Volume 8.7 6.9-10.8 fL Neutrophils (%) (Auto) 66.0 37.0-80.0 % Lymphocytes (%) (Auto) 22.7 10.0-50.0 % Monocytes (%) (Auto) 8.9 0.0-12.0 % Eosinophils (%) (Auto) 2.0 0.0-7.0 % Basophils (%) (Auto) 0.4 0.0-2.0 % Neutrophils # (Auto) 8.1 1.6-8.6 10 ^3/uL Lymphocytes # (Auto) 2.8 0.4-5.4 10 ^3/uL Monocytes # (Auto) 1.1 0-1.3 10 ^3/uL Eosinophils # (Auto) 0.3 0-0.8 10 ^3/uL Basophils # (Auto) 0.1 0-0.2 10 ^3/uL Nucleated Red Blood Cells 0.1 % Total Bilirubin 0.6 0.2-1.0 mg/dL Aspartate Amino Transferase (AST) 16 13-40 U/L Alanine Aminotransferase (ALT) 26 7-40 U/L Alkaline Phosphatase 77 46-116 U/L Total Protein 6.7 5.7-8.2 g/dL Albumin 4.4 3.2-4.8 g/dL Erythrocyte Sedimentation Rate 16 0-20 mm/hr Uric Acid 6.0 3.7-9.2 mg/dL Test 08/09/24 12:05 08/09/24 10:21 08/09/24 09:41 08/09/24 08:30 Range/Units Troponin I High Sensitivity 499 *H </=54 ng/L POC Glucose 123 H 70-106 mg/dl Urine Color Light-yellow Yellow Urine Clarity Clear Clear Urine pH 6.5 5.0-9.0 Urine Specific [place] 1.013 1.001-1.035 Urine Protein 1+ H Negative Urine Ketones Negative Negative Urine Blood Trace H Negative /uL Urine Nitrite Negative Negative Urine Bilirubin Negative Negative Urine Urobilinogen Normal Negative mg/dL Urine Leukocyte Esterase Negative Negative /uL Urine RBC 8 0 - 3 /hpf Urine Microscopic WBC 5 H 0-3 /HPF Urine Squamous Epithelial Cells Few <5 /hpf Urine Bacteria None seen None Seen /hpf Urine Hyaline Casts Few 0 - 2 /lpf Urine Mucus Few None Seen Urine Glucose Normal Normal mg/dL Urine Opiates Screen Neg NEGATIVE Urine Fentanyl Screen Neg NEGATIVE Urine Barbiturates Screen Neg NEGATIVE Urine Phencyclidine Screen Neg NEGATIVE Urine Amphetamines Screen Neg NEGATIVE Urine Benzodiazepines Screen Neg NEGATIVE Urine Cocaine Screen Neg NEGATIVE Urine Cannabinoids Screen Neg NEGATIVE Prothrombin Time 11.1 9.3-11.8 sec Prothrombin Time INR 1.05 0.9-1.15 Activated Partial Thromboplast Time 28.6 24.5-34.5 SEC Hemoglobin A1c 5.8 H <5.7 % A1C Triglycerides Level 129 < 150 mg/dL Cholesterol Level 154 < 200 mg/dL LDL Cholesterol 101 H < 100 mg/dL HDL Cholesterol 43 40-59 mg/dL Thyroid Stimulating Hormone (TSH) 0.86 0.55-4.78 uIU/mL Microbiology Date/Time Source Procedure Growth Status 08/09/24 15:14 Blood Blood Culture - Preliminary NO GROWTH AFTER 72 HOURS OF INCUBATION. Resulted 08/09/24 09:41 Voided Urine Urine Culture - Final Complete Problems(with codes): (1) Urinary tract infection (2) Renal stones (3) Abdominal pain of unknown etiology (4) Leg pain (5) Lower extremity edema (6) Elevated troponin (7) Foot pain, bilateral (8) Vascular insufficiency of extremity Plan/Recommendation ASSESSMENT: Patient is a 59-year-old seen on the floor for cyanotic digits PLAN: - The patients chart was reviewed, clinical findings were discussed with the patient, the etiologies of the conditions were discussed in detail, and a treatment plan was agreed to at this time, with both oral and written instructions provided. - reviewed advanced imaging - had lengthy discussion with the patient about the option of waiting for the toes to demarcate versus a more proximal amputation of the digits - patient would like to proceed with bilateral toe amputations of the 2nd and 3rd - patient will have that performed on Saturday around noon - patient will be NPO at midnight Saturday All questions were answered and concerns addressed to the patient's satisfaction. The patient was given the phone number to the clinic and was told how to make contact with the clinic should any concerns or questions arise. Patient understands that if any questions or concerns arise prior to the next appointment, we should be contacted immediately. FOLLOW-UP: Continue to follow while inpatient Plan discussed with: Patient Date of Service: Aug 14, 2024 Billing Provider: AMRITA FREEMAN DPM Common Visit Codes: CONSULT ONLY Consultation Codes: [id number] CONSULT <80MIN AMRITA FREEMAN DPM Aug 14, 2024 14:17
[2024-08-14] MEDS ORDERED: HYDROcodone-ACET 10/325MG TAB PO PRN (16:00)
[2024-08-14] MEDS ORDERED: ASPI-325 PO (16:08)
[2024-08-14] MEDS ORDERED: CLOP75TA70 PO (16:08)
[2024-08-14] MEDS ORDERED: ROSU40TA81 PO (16:08)
[2024-08-14] MEDS ORDERED: HYDR-4798 PO (16:08)
[2024-08-14] MEDS ORDERED: GABA-339 PO (16:08)
[2024-08-14] MEDS ORDERED: ISO60SRT PO (16:08)
--- NOTE | 2024-08-14 17:07 | DVHDS2 ---
Discharge Summary Date of Admission Aug 09, 2024 at 13:35 Date of Discharge: Aug 14, 2024 Labs/Diagnostic Data: Laboratory Results Test 08/14/24 10:02 08/13/24 13:20 08/10/24 07:03 08/09/24 15:14 Sodium Level 136 mmol/L (136-145) Potassium Level 4.4 mmol/L (3.5-5.1) Chloride Level 101 mmol/L (98-107) Carbon Dioxide Level 27 mmol/L (20-31) Anion Gap 8 (5-15) Blood Urea Nitrogen 19 mg/dL (9-23) Creatinine 1.15 mg/dL (0.700-1.30) Glomerular Filtration Rate Calc 73 mL/min (>90) BUN/Creatinine Ratio 16.5 (10.0-20.0) Serum Glucose 142 mg/dL (74-106) Calcium Level 11.4 mg/dL (8.7-10.4) White Blood Count 12.2 10^3/uL (4.4-10.8) Red Blood Count 5.71 10^6/uL (4.5-5.90) Hemoglobin 17.4 g/dL (13.5-17.5) Hematocrit 52.9 % (41.0-53.0) Mean Corpuscular Volume 92.6 fL (80.0-100.0) Mean Corpuscular Hemoglobin 30.5 pg (28.0-32.0) Mean Corpuscular Hemoglobin Concent 32.9 g/dL (32.0-36.0) Red Cell Distribution Width 13.7 % (11.8-14.3) Platelet Count 222 10^3/uL (140-450) Mean Platelet Volume 8.7 fL (6.9-10.8) Neutrophils (%) (Auto) 66.0 % (37.0-80.0) Lymphocytes (%) (Auto) 22.7 % (10.0-50.0) Monocytes (%) (Auto) 8.9 % (0.0-12.0) Eosinophils (%) (Auto) 2.0 % (0.0-7.0) Basophils (%) (Auto) 0.4 % (0.0-2.0) Neutrophils # (Auto) 8.1 10 ^3/uL (1.6-8.6) Lymphocytes # (Auto) 2.8 10 ^3/uL (0.4-5.4) Monocytes # (Auto) 1.1 10 ^3/uL (0-1.3) Eosinophils # (Auto) 0.3 10 ^3/uL (0-0.8) Basophils # (Auto) 0.1 10 ^3/uL (0-0.2) Nucleated Red Blood Cells 0.1 % Total Bilirubin 0.6 mg/dL (0.2-1.0) Aspartate Amino Transferase (AST) 16 U/L (13-40) Alanine Aminotransferase (ALT) 26 U/L (7-40) Alkaline Phosphatase 77 U/L (46-116) Total Protein 6.7 g/dL (5.7-8.2) Albumin 4.4 g/dL (3.2-4.8) Erythrocyte Sedimentation Rate 16 mm/hr (0-20) Uric Acid 6.0 mg/dL (3.7-9.2) Test 08/09/24 12:05 08/09/24 10:21 08/09/24 09:41 08/09/24 08:30 Troponin I High Sensitivity 499 ng/L (</=54) POC Glucose 123 mg/dl (70-106) Urine Color Light-yellow (Yellow) Urine Clarity Clear (Clear) Urine pH 6.5 (5.0-9.0) Urine Specific [place] 1.013 (1.001-1.035) Urine Protein 1+ (Negative) Urine Ketones Negative (Negative) Urine Blood Trace /uL (Negative) Urine Nitrite Negative (Negative) Urine Bilirubin Negative (Negative) Urine Urobilinogen Normal mg/dL (Negative) Urine Leukocyte Esterase Negative /uL (Negative) Urine RBC 8 /hpf (0 - 3) Urine Microscopic WBC 5 /HPF (0-3) Urine Squamous Epithelial Cells Few /hpf (<5) Urine Bacteria None seen /hpf (None Seen) Urine Hyaline Casts Few /lpf (0 - 2) Urine Mucus Few (None Seen) Urine Glucose Normal mg/dL (Normal) Urine Opiates Screen Neg (NEGATIVE) Urine Fentanyl Screen Neg (NEGATIVE) Urine Barbiturates Screen Neg (NEGATIVE) Urine Phencyclidine Screen Neg (NEGATIVE) Urine Amphetamines Screen Neg (NEGATIVE) Urine Benzodiazepines Screen Neg (NEGATIVE) Urine Cocaine Screen Neg (NEGATIVE) Urine Cannabinoids Screen Neg (NEGATIVE) Prothrombin Time 11.1 sec (9.3-11.8) Prothrombin Time INR 1.05 (0.9-1.15) Activated Partial Thromboplast Time 28.6 SEC (24.5-34.5) Hemoglobin A1c 5.8 % A1C (<5.7) Triglycerides Level 129 mg/dL (< 150) Cholesterol Level 154 mg/dL (< 200) LDL Cholesterol 101 mg/dL (< 100) HDL Cholesterol 43 mg/dL (40-59) Thyroid Stimulating Hormone (TSH) 0.86 uIU/mL (0.55-4.78) Other Laboratory Tests 08/14/24 10:02 08/13/24 13:20 Brief Hx & Hospital Course: HPI: 59-year-old male with pmhx hyperlipidemia, tobacco use, and morbid obesity; presents with bilateral feet pain for 1.5 months. The patient reports an increase in pain over the last couple of days and decided to come to the emergency room for further evaluation. Cardiology has been consulted at this time for elevated troponin level. Patient denies any chest pain, palpitations, shortness of breath, or other cardiac symptoms. Initial twelve lead electrocardiogram reveals normal sinus rhythm. Initial troponin level of 417ng/L with flat trend thereafter. . Of note, the patient reports he has not seen a primary doctor in approximately 15 years. summary: on admit noted to have Tn elevation. Echo with some apical dismotility, NSTEMI ruled out. Has leukocytosis with blood and urine cultures negative, no antitiobics needed. used nicotine patches, a1c elevated and using SSI. UDS negative. patient has foot pain BL and US doppler artery BL shows: 20-49% stenosis of the right common femoral artery based on peak systolic velocity criteria. Abnormal monophasic arterial waveforms in the bilateral dorsalis pedis arteries is suggestive of underlying peripheral arterial disease. cardiology consult for PAD. The patient underwent a right peripheral angiogram on 08/10/24 with successful SHOW JUMPING INSTRUCTOR of the posterior tibial artery with a right lower extremity with a occluded left anterior and posterior tibial artery occlusions. There were also findings of an occluded anterior tibial artery in the right which underwent a successful angioplasty of the right posterior tibial artery. 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 Continue medical management including high-dose statin therapy, anticoagulation with DAPT (Plavix and ASA), vasodilators for BP control, and nicotine patch. Consult podiatry given discoloration of right toes, recommend amputation but patient wants to try conservative non-operative measures first. discuss with cardiology and podiatry to discharge with plan below. 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 strongly advisesmoking cessation, medical compliance, and exercise. PCP to jose forsleep study and pulmonary function test as outpatient. follow up with Podiatry to discuss further management of painful toes Follow-up with a primary contamination consultant or vascular specialist as outpatient. 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 Patient was counseled about treatment plan, medications, possible side effects, patientverbalized understanding. All questions were answered to the best of my ability. This discharge took greater then 30 minutes in planning, reviewing documentation, counseling the patient, and discussing with other team members." Date of Service: Aug 14, 2024 Billing Provider: NHAN PALACIOS MD Common Visit Codes: 31244-VDJ/[id number] DISCH DAY >30min NHAN PALACIOS MD Aug 14, 2024 17:07
[2024-08-14] MEDS: MORPHINE SULFATE INJ 2 MG/ml SYRG IV PRN (17:31)
== END 2024-08-14 19:48 | disposition home or self-care (01) | DRG 182 ==
LOC: ER 08:18 → OVERFLOW 13:35 → ER 14:01 → TELE-WESTW 21:32 → WEST WING 08-11 14:43 → CENTRAL 08-14 04:54
PROVIDERS: ADMIT Student in an Organized Health Care Education/Training Program; ATTEND Student in an Organized Health Care Education/Training Program
PROC: B41GYZZ Fluoroscopy of Left Lower Extremity Arteries using Other Contrast (ICD-10-PCS; principal; 2024-08-10)
PROC: 047P3ZZ Dilation of Right Anterior Tibial Artery, Percutaneous Approach (ICD-10-PCS; 2024-08-10)
PROC: B41FYZZ Fluoroscopy of Right Lower Extremity Arteries using Other Contrast (ICD-10-PCS; 2024-08-10)
PROC: 047R3ZZ Dilation of Right Posterior Tibial Artery, Percutaneous Approach (ICD-10-PCS; 2024-08-10)
PROC: B41GYZZ Fluoroscopy of Left Lower Extremity Arteries using Other Contrast (ICD-10-PCS; 2024-08-13)
PROC: 047Q3ZZ Dilation of Left Anterior Tibial Artery, Percutaneous Approach (ICD-10-PCS; 2024-08-13)
PROC: 047S3ZZ Dilation of Left Posterior Tibial Artery, Percutaneous Approach (ICD-10-PCS; 2024-08-13)
DX: I73.9 Peripheral vascular disease, unspecified (principal); D72.829 Elevated white blood cell count, unspecified; E66.01 Morbid (severe) obesity due to excess calories; G62.9 Polyneuropathy, unspecified; I16.0 Hypertensive urgency; I35.1 Nonrheumatic aortic (valve) insufficiency; M10.9 Gout, unspecified; R73.03 Prediabetes; F15.10 Other stimulant abuse, uncomplicated; E78.5 Hyperlipidemia, unspecified; R73.9 Hyperglycemia, unspecified; F17.210 Nicotine dependence, cigarettes, uncomplicated; K27.9 Peptic ulcer, site unspecified, unspecified as acute or chronic, without hemorrhage or perforation; Z87.442 Personal history of urinary calculi; Z71.6 Tobacco abuse counseling; Z79.899 Other long term (current) drug therapy; Z68.39 Body mass index [BMI] 39.0-39.9, adult
CPT/HCPCS: 36415; 37228; 71046; 75710; 75716; 80048; 80053; 80061; 80307; 81001; 82962; 83036; 84443; 84484; 84550; 85025; 85610; 85652; 85730; 87040; 87086; 93005; 93306; 93925; 93970; 97110; 97163; 97530; 99152; C1725; C1769; C1894; G0378; J1885; J2250; Q9967